=== PATIENT | female | born 1955 | race Caucasian/White ===

== ENCOUNTER 2021-12-11 08:40 | Outpatient (CLI) | payer MEDICARE, SELFPAY ==
--- NOTE | ~2021-12-11 | MM_ITS ---
EXAMINATION: MM screening [facility] BI w aneesh HISTORY: Screening mammogram TECHNIQUE: Craniocaudal and mediolateral oblique 3-D tomosynthesis images were obtained and synthetic 2-D images were generated. CAD analysis was submitted and interpreted. COMPARISON: 08/20/2019 bilateral screening mammogram 4 bilateral diagnostic digital mammogram and limited left breast ultrasound examinations 08/20/2017 left diagnostic mammogram and limited left breast ultrasound 01/14/2017 bilateral screening mammogram BREAST PARENCHYMAL COMPOSITION: The breasts are almost entirely fatty. FINDINGS: Benign stable circumscribed 5.8 mm posterior mid lateral breast intramammary lymph node. There is no evidence of suspicious mass, calcification, or architectural distortion to suggest malign blessing in either breast. There has been no suspicious interval change. IMPRESSION: 1. No mammographic evidence of malignancy. 2. Recommend routine screening mammography in one year. BI-RADS Category 2: Benign finding(s). Reviewed, dictated and finalized at location A. HEALTH CARE PHYSICIAN
== END 2021-12-11 08:41 | disposition home or self-care (01) ==
LOC: ANHIMG 08:42
PROVIDERS: PCP Family Medicine; Visit Provider Family Medicine
DX: Z12.31 Encounter for screening mammogram for malignant neoplasm of breast (principal)
CPT/HCPCS: 77063; 77067

== ENCOUNTER 2023-02-20 11:33 | Outpatient (CLI) | payer MEDICARE, SELFPAY ==
--- NOTE | ~2023-02-20 | MM_ITS ---
EXAMINATION: MM screening [facility] BI w aneesh HISTORY: Screening mammogram TECHNIQUE: Craniocaudal and mediolateral oblique 3-D tomosynthesis images were obtained and synthetic 2-D images were generated. CAD analysis was submitted and interpreted. COMPARISON: 12/11/2021, 08/20/2019, 02/17/2018, 08/20/2017, 01/14/2017 BREAST PARENCHYMAL COMPOSITION: There are scattered areas of fibroglandular density. FINDINGS: Again noted is a stable intramammary lymph node in the upper outer quadrant of the right br east. No suspicious mass, calcification, or architectural distortion are identified in either breast to suggest malignancy. There has been no suspicious interval change. IMPRESSION: 1. No mammographic evidence of malignancy. 2. Recommend routine screening mammography in one year. BI-RADS Category 2: Benign finding(s). Reviewed, dictated and finalized at location A.
== END 2023-02-20 11:34 | disposition home or self-care (01) ==
LOC: ANHIMG 11:36
PROVIDERS: PCP Family Medicine; Visit Provider Emergency Medicine
DX: Z12.31 Encounter for screening mammogram for malignant neoplasm of breast (principal)
CPT/HCPCS: 77063; 77067

== ENCOUNTER 2023-03-15 12:46 | Emergency (ER) | payer MEDICARE, SELFPAY ==
--- NOTE | ~2023-03-15 | CT_ITS ---
Non-contrast Head CT History: Head injury Technique: Axial non-contrast imaging of the brain was performed. Dose reduction technique was used on this scan by utilizing automated exposure control and iterative reconstruction technique. The dose -length product (DLP) was 605.33 mGy-cm. Findings: There is no evidence of intracranial hemorrhage, mass lesion, or acute infarct. Brain par enchyma appears normal. The ventricles and subarachnoid spaces are normal in size. The calvarium ap pears normal. The visualized paranasal sinuses and mastoid air cells are clear. Impression: No significant abnormality seen. Reviewed, dictated and finalized at location . Impression: No significant abnormality seen.
--- NOTE | ~2023-03-15 | CT_ITS ---
CT Facial Bones and Cervical Spine Clinical Indication: Trauma Technique: Contiguous axial scans were obtained through the facial bones and cervical spine followed by coronal and sagittal reconstructions. Dose reduction technique was used on this scan by utilizing automated exposure control and iterative reconstruction technique. The dose-length product (DLP) was 442.50 mGy-cm. Findings: CT facial bones: No fractures are identified. The visualized paranasal sinuses are clear. Intraorbita l soft tissues appear normal. CT cervical spine: No acute fracture identified. There is reversal normal cervical lordosis. 1 mm ant erolisthesis of C2 over C3 present. 5 mm anterolisthesis of C3 over C4 present. 2 mm anterolisthesis of C4 over C5 present. There is severe degenerative disc narrowing throughout the cervical spine, wor st at C5-C6 and C6-C7. There are uncovertebral degenerative changes throughout the cervical spine as well. There is with extensive facet joint arthropathy throughout the cervical spine, right-sided gene rally worse than left. There is right neural foraminal narrowing at C2-C3. There is probable bilatera l neural foraminal narrowing at C3-C4, C4-C5, and C5-C6. No prevertebral soft tissue swelling. Impression: No fracture is seen in the facial bones. No fracture the cervical spine. Multiple listheses in the upper cervical spine, as detailed above. Advanced degenerative spondylosis of the cervical spine, as detailed above. Reviewed, dictated and finalized at [facility]. Impression: No fracture is seen in the facial bones. No fracture the cervical spine. Multiple listheses in the upper cervical spine, as detailed above. Advanced degenerative spondylosis of the cervical spine, as detailed above.
[2023-03-15 12:54] VITALS: BP 172/80; PULSE 64; RESP 18; TEMP 36.8; O2SAT 99
--- NOTE | 2023-03-15 13:12 | PC.NURSE ---
Pt to CT scan via w/c at this time.
--- NOTE | 2023-03-15 14:15 | ED.HEATRA ---
HPI - Head Injury General Chief complaint: Head Injury Stated complaint: fall, head lac Time Seen by Provider: 03/15/23 12:59 Source: patient Mode of arrival: ambulatory Limitations: no limitations History of Present Illness HPI Narrative: Patient is a 68-year-old female who presents to the ED with reports of a fall with head injury/laceration to right eyebrow. Patient reports she was doing laundry last night around 10:30 PM when she tripped over an article clothing and fell forward. She did hit her head. She was wearing glasses at the time and thinks her glasses frame caused a laceration to her right eyebrow. She denied LOC. She denied any prodromal symptoms prior to the fall. Patient was able to control the bleeding last night, but when she cleaned the wound today, she thought it might need stitches. Denies any other injuries from the fall. Denies vision changes, back or neck pain, chest pain, difficulty breathing. Tetanus status up-to-date as of 2 years ago. Patient is not on any anticoagulation. Related Data Home Medications Medication Instructions Recorded Confirmed fexofenadine 180 mg tablet 180 mg PO DAILY 09/09/19 03/12/23 (Lian Allergy) multivitamin 1 tablet PO DAILY 09/09/19 03/12/23 Allergies Allergy/AdvReac Type Severity Reaction Status Date / Time Sulfa (Sulfonamide Allergy Unknown Skin Verified 03/12/23 09:11 Antibiotics) Reaction Review of Systems Review of Systems: CONSTITUTIONAL: Denies fever, chills, or sweats. EYES: See HPI. CARDIOVASCULAR: Denies chest pain. RESPIRATORY: Denies dyspnea. GASTROINTESTINAL: Denies abdominal pain, nausea, vomiting. SKIN: See HPI. MUSCULOSKELETAL: Denies back pain, joint pain, or myalgia. NEUROLOGIC: See HPI. All systems reviewed & are unremarkable except as noted in HPI and below PMFSH Past Medical History Medical History Mammogram normal (~01/14/17) Other hyperlipidemia Pap smear for cervical cancer screening (~12/14/16) Pure hypercholesterolemia, unspecified Surgical History Surgical History H/O shoulder replacement 03-21-2011 History of carpal tunnel release 2011 History of colonoscopy (~12/27/16) History of knee replacement 2020 Dr Vera, 2006, 2005, 2004 Family History Family History Father Family history of cardiovascular disease, Onset Age: 77 Mother Family history of cardiovascular disease, Onset Age: 86 Social History Social History Social History: Caffeine-coffee Smoking status: Former smoker Smoking end date: 10/21/92 Alcohol intake: current Alcohol use details: occasionally Lack of Transportation: No Lack of Food: Never True Current Housing: I Have Housing Concerned About Future Housing: No Difficulty Paying Gas/Electric Bills: No Difficulty Paying for Meds: No Currently Unemployed: No Education: Trade/Vocational Certificate Difficulty w/ Childcare or Family Care: No Exam Narrative: GENERAL: Well appearing, obese with BMI of 32.9, non-toxic, in no acute distress. HEAD: Normocephalic. EYES: PERRLA/EOMI, conjunctiva clear. 1cm linear vertical laceration to outer R eyebrow, no active bleeding. NECK: Supple. No adenopathy, no masses. No midline spinal tenderness. RESPIRATORY: Airway patent, respirations nonlabored. Clear to auscultation bilaterally, no rales, rhonchi, wheezing. CARDIOVASCULAR: Regular rate and rhythm without murmurs, rubs, or gallops. Radial pulses 2+ and equal bilaterally. MUSCULOSKELETAL: Moves all extremities. Strength/ROM intact without gross deformities. SKIN: Warm, dry, normal color. No rashes. NEURO: A&O X3. Speech clear. Cranial nerves II-XII grossly intact. Steady gait. No ataxic movements. No focal deficits.
[2023-03-15 14:30] VITALS: BP 149/94; PULSE 59; RESP 17; O2SAT 97
== END 2023-03-15 14:32 | disposition home or self-care (01) ==
PROVIDERS: Emergency Provider Physician Assistant; PCP Emergency Medicine
DX: S01.111A Laceration without foreign body of right eyelid and periocular area, initial encounter (principal); S09.90XA Unspecified injury of head, initial encounter; E78.00 Pure hypercholesterolemia, unspecified; Z96.619 Presence of unspecified artificial shoulder joint; Z96.659 Presence of unspecified artificial knee joint; Z87.891 Personal history of nicotine dependence; M47.812 Spondylosis without myelopathy or radiculopathy, cervical region; W18.09XA Striking against other object with subsequent fall, initial encounter
CPT/HCPCS: 12013; 70450; 70486; 72125; 99284

== ENCOUNTER 2023-06-27 15:10 | Outpatient (CLI) | payer MEDICARE, SELFPAY ==
--- NOTE | ~2023-06-27 | XR_ITS ---
EXAMINATION: XR hand RT min 3V DATE: 06/27/2023 15:42 INDICATION: Localized swelling, mass and lump, right hand. Right hand pain. TECHNIQUE: 3 views of right hand were obtained. COMPARISON: None. FINDINGS: There is ulnar subluxation of fifth distal phalanx with respect to the middle phalanx. Ther e is radial angulation of second distal phalanx with respect to the middle phalanx. No fracture. Ther e is advanced osteoarthritis in the radiocarpal compartment including bone volume loss of scaphoid, l unate, and triquetrum and large subchondral cysts. There is severe osteoarthritis of triscaphe joint and first carpometacarpal joint. There is mild osteoarthritis of some of the metacarpophalangeal join ts and interphalangeal joints. There is severe osteoarthritis of first interphalangeal joint and seco nd and fifth distal interphalangeal joints and moderate osteoarthritis of first metacarpophalangeal j oint. There are small loose bodies in the wrist. IMPRESSION: 1. Polyarticular osteoarthritis. Reviewed, dictated and finalized at location E.
--- NOTE | ~2023-06-27 | XR_ITS ---
EXAMINATION: XR hand LT min 3V DATE: 06/27/2023 15:42 INDICATION: Localized swelling, mass and lump, left hand. TECHNIQUE: 3 views of left hand were obtained. COMPARISON: None. FINDINGS: There is ulnar subluxation of second distal phalanx with respect to the middle phalanx. The re is radial angulation of third distal phalanx with respect to the middle phalanx. No fracture. Ther e is advanced osteoarthritis of the radiocarpal compartment including bone volume loss of scaphoid an d lunate. There is scapholunate dissociation with articulation of the distal radius with capitate. Th ere are large subchondral cysts in distal radius. There is severe osteoarthritis of triscaphe joint a nd first carpometacarpal joint. There is mild to moderate osteoarthritis of many of the metacarpophal angeal joints and interphalangeal joints. There is severe osteoarthritis of second and third distal i nterphalangeal joints. There is soft tissue swelling about the wrist. IMPRESSION: 1. Polyarticular osteoarthritis. Reviewed, dictated and finalized at location E.
== END 2023-06-27 15:11 | disposition home or self-care (01) ==
PROVIDERS: PCP Emergency Medicine; Visit Provider Plastic Surgery
DX: R22.33 Localized swelling, mass and lump, upper limb, bilateral (principal); M19.041 Primary osteoarthritis, right hand; M19.042 Primary osteoarthritis, left hand
CPT/HCPCS: 73130

== ENCOUNTER → 2023-07-03 12:49 | Outpatient (CLI) | payer MEDICARE, SELFPAY ==
--- NOTE | ~2023-07-03 | US_ITS ---
EXAMINATION: US soft tissue UE LT DATE: 07/03/2023 13:18 INDICATION: Lump at the dorsum of left wrist. TECHNIQUE: Multiple grayscale and Doppler ultrasound images of the left upper extremity were obtained . COMPARISON: Left hand radiographs 06/27/2023 FINDINGS: In the dorsum of left wrist in the patient's area of concern, there are distended tendon sh eaths containing hypoechoic material, consistent with tenosynovitis. IMPRESSION: 1. Extensor tenosynovitis in the dorsum of left wrist in the patient's area of concern. Reviewed, dictated and finalized at location A.
--- NOTE | ~2023-07-03 | US_ITS ---
EXAMINATION: US soft tissue UE RT DATE: 07/03/2023 13:18 INDICATION: Posterior right wrist lump. TECHNIQUE: Multiple grayscale and Doppler ultrasound images of the right upper extremity were obtaine d. COMPARISON: Right hand radiographs 06/27/23 FINDINGS: There is extensor tenosynovitis in the dorsum of right wrist in the patient's area of roshan rn. IMPRESSION: 1. Extensor tenosynovitis in the dorsum of right wrist in the patient's area of concern. Reviewed, dictated and finalized at location A.
== END ==
PROVIDERS: PCP Emergency Medicine; Visit Provider Plastic Surgery
DX: R22.31 Localized swelling, mass and lump, right upper limb (principal); R22.32 Localized swelling, mass and lump, left upper limb
CPT/HCPCS: 76882

== ENCOUNTER 2023-08-16 14:40 | Outpatient (CLI) | payer MEDICARE, SELFPAY ==
--- NOTE | ~2023-08-16 | DEXA_ITS ---
Bone Density Report Name: REINALDO KIDD Age: 68 Sex: Female Ethnicity: White Date of : 1955 Indication: osteopenia; height loss; prior fracture; postmenopausal Referring Provider: ROLAND MEDINA Study: Bone densitometry was performed. Exam Date: August 16, 2023 Accession number: [id number] Bone Density: Region BMD T-score Z-score Classification AP Spine(L1-L4) 0.891 -1.4 0.6 Osteopenia Femoral Neck (Left) 0.602 -2.2 -0.5 Osteopenia Total Hip (Left) 0.744 -1.6 -0.2 Osteopenia Femoral Neck (Right) 0.759 -0.8 0.9 Normal Total Hip (Right) 0.815 -1.0 0.4 Normal Total Hip Mean 0.780 -1.3 0.1 Osteopenia World Health Organization criteria for BMD impression classify patients as: Normal (T-score at or above -1.0), Osteopenia (T-score between -1.0 and -2.5), or Osteoporosis (T-score at or below -2.5). 10-year Fracture Risk(1): Major Osteoporotic Fracture 18% Hip Fracture 3.4% Reported Risk Factors: [place] (), Neck BMD=0.602, BMI=32.9, previous fracture (1) FRAX(R) Version 3.08. Fracture probability calculated for an untreated patient. Fracture probability may be lower if the patient has received treatment. Previous Exams: Region Exam Age BMD T-score BMD Change BMD Change Date g/cm2 vs Baseline vs Previous Total Hip(Left) 08/16/2023 68 0.744 -1.6 -0.055 (-6.9%) -0.055 (-6.9%) 01/05/2016 61 0.799 -1.2 Total Hip(Right) 08/16/2023 68 0.815 -1.0 -0.056 (-6.5%) -0.056 (-6.5%) 01/05/2016 61 0.871 -0.6 *Denotes significance at 95% confidence level, LSC for Total Hip = 0.027 g/cm2 Clinical Information Provided by Patient: Has had a low trauma fracture Patient maximum height was 64.5 Menopause Age: 48 Drinks caffeinated beverages Onset of menses at age 11 Number of children 0 Impression: The patient has low bone mass, based on the Left Femoral Neck T-score. The patient has an estimated ten-year risk of hip fracture of 3.4% and an estimated ten-year risk of major fracture of 18%, based on the WHO FRAX algorithm. The patient has risk factors, including: previous fracture. The BMD for the Total Hip(Left) decreased, changing by -6.9% since the last DXA exam. The BMD for the Total Hip(Right) decreased, changing by -6.5% since the last DXA exam. Discussion: BONE DENSITY IS LOW AT ONE OR MORE SKELETAL SITES. THE PATIENT'S BMD AND CLINICAL RISK FACTORS CONTRIBUTE TO THIS PATIENT'S INCREASED RISK OF FRACTURE. This patient's lowest T-score is
== END 2023-08-16 14:41 | disposition home or self-care (01) ==
LOC: ANHIMG 14:41
PROVIDERS: PCP Emergency Medicine; Visit Provider Nurse Practitioner Family
DX: M85.88 Other specified disorders of bone density and structure, other site (principal); M85.852 Other specified disorders of bone density and structure, left thigh; M85.851 Other specified disorders of bone density and structure, right thigh
CPT/HCPCS: 77080

== ENCOUNTER 2023-10-03 07:02 | Day surgery (SDC) | payer MEDICARE, SELFPAY ==
[2023-08-16 08:45] VITALS: BMI 33.0
[2023-09-17 13:41] VITALS: BMI 33.1
[2023-10-03 08:11] VITALS: BP 138/88; PULSE 67; RESP 18; TEMP 37.1; O2SAT 97
[2023-10-03] MEDS: LACTATED RINGERS 1,000 ML 150 ML IV CONT (08:24)
--- NOTE | 2023-10-03 08:38 | WPDANESEPPF ---
Anes - Initial Pre Proc Eval Procedure: Operation Date: 10/03/23 09:30 Proposed Procedures p Diagnostic Colonoscopy - Hari Carpio MD Date/Time: 10/03/23 08:38 Surgeon: Hari Carpio MD Pre Op Diagnosis: Family History of Colonic Polyps Patient Data Age: 68 Gender: F Height: 1.55 m Weight: 76.7 kg Last Vital Signs Temp 37.1 C 10/03/23 08:11 Pulse 67 10/03/23 08:11 Resp 18 10/03/23 08:11 BP 138/88 10/03/23 08:11 Pulse Ox 97 10/03/23 08:11 O2 Del Method Room Air 10/03/23 08:11 Allergies Allergy/AdvReac Type Severity Reaction Status Date / Time Sulfa (Sulfonamide Allergy Unknown Skin Verified 10/03/23 08:06 Antibiotics) Reaction Home Medications Medication Instructions Recorded Confirmed Type fexofenadine 180 mg tablet 180 mg PO DAILY 09/09/19 10/03/23 History (Lian Allergy) multivitamin 1 tablet PO DAILY 09/09/19 10/03/23 History triamcinolone acetonide 0.1 % See Rx Instructions .Route 08/09/22 10/03/23 Rx topical cream .COMPLEX #90 grams citalopram 40 mg tablet See Rx Instructions .Route 06/13/23 10/03/23 Rx .COMPLEX #90 tabs azelastine 137 mcg (0.1 %) nasal 1 spray intranasal Q12H #180 mL 08/14/23 10/03/23 Rx spray aerosol meloxicam 15 mg tablet See Rx Instructions .Route 08/19/23 10/03/23 Rx .COMPLEX #90 tabs omeprazole 20 mg capsule,delayed See Rx Instructions .Route 08/23/23 09/17/23 Rx release .COMPLEX #90 caps oxybutynin chloride 15 mg See Rx Instructions .Route 09/05/23 10/03/23 Rx tablet,extended release 24 hr .COMPLEX #180 tabs diclofenac sodium 1 % topical gel See Rx Instructions topical BID 10/02/23 10/03/23 Rx (Voltaren Arthritis Pain) #100 grams Patient hx anesthesia problems: none Family hx anesthesia problems: none Results Review: All pre-operative results and documents have been reviewed as part of the pre-operative evaluation. [facility] Past Medical History Medical History Mammogram normal (~01/14/17) Other hyperlipidemia Pap smear for cervical cancer screening (~12/14/16) Pure hypercholesterolemia, unspecified Surgical History Surgical History H/O shoulder replacement 03-21-2011 History of carpal tunnel release 2011 History of colonoscopy (~12/27/16) History of knee replacement 2020 Dr Vera, 2006, 2005, 2004 Family History Family History Father Family history of cardiovascular disease, Onset Age: 77 Mother Family history of cardiovascular disease, Onset Age: 86 Social History Social History Social History: Caffeine-coffee Smoking status: Former smoker Smoking end date: 10/21/92 Alcohol intake: current Alcohol use details: occasionally Lack of Transportation: No Lack of Food: Never True Current Housing: I Have Housing Concerned About Future Housing: No Difficulty Paying Gas/Electric Bills: No Difficulty Paying for Meds: No Currently Unemployed: No Education: High School Diploma/GED Difficulty w/ Childcare or Family Care: No Living arrangements: alone Spiritual care concerns: No Anes - Eval Final PreProcedure Day of Procedure 10/03/23 08:38 Patient weight: obese Heart: regular rate and rhythm Lungs: clear to auscultation Airway: Mallampati scale class II Neurological: alert and oriented Last oral intake: >/= 8 hours ASA classification: III Emergent: no Anesthetic plan: proceed Anesthesia type and monitoring: general GIVS and standard monitoring Results Review: All pre-operative results and documents have been reviewed as part of the pre-operative evaluation. Informed Consent: The patient's anesthetic plan and its attendant risks and benefits were discussed with the patient/family/POA. Questions were solicited and answers
--- NOTE | 2023-10-03 08:41 | PM.HPGS ---
History of Present Illness History of Present Illness Consent: Risks, benefits, and alternatives have been discussed and questions answered. Patient agrees to proceed with procedure. Chief complaint: Family History of Colonic Polyps Narrative: Vira Buckley is a 68 year old female Presents for screening colonoscopy. Patient's sister has had colon polyps. Patient reports that her own weight appetite and bowel movements have been normal. Patient denies any abdominal pain. She has had no bleeding. Review of Systems Review of Systems: Review of systems is noncontributory. [facility] Past Medical History Medical History Mammogram normal (~01/14/17) Other hyperlipidemia Pap smear for cervical cancer screening (~12/14/16) Pure hypercholesterolemia, unspecified Surgical History Surgical History H/O shoulder replacement 03-21-2011 History of carpal tunnel release 2011 History of colonoscopy (~12/27/16) History of knee replacement 2019 Dr Vera, 2006, 2005, 2004 Family History Family History Father Family history of cardiovascular disease, Onset Age: 77 Mother Family history of cardiovascular disease, Onset Age: 86 Social History Social History Social History: Caffeine-coffee Smoking status: Former smoker Smoking end date: 10/21/92 Alcohol intake: current Alcohol use details: occasionally Lack of Transportation: No Lack of Food: Never True Current Housing: I Have Housing Concerned About Future Housing: No Difficulty Paying Gas/Electric Bills: No Difficulty Paying for Meds: No Currently Unemployed: No Education: High School Diploma/GED Difficulty w/ Childcare or Family Care: No Living arrangements: alone Spiritual care concerns: No Meds Home Medications and Allergies Home Medications Medication Instructions Recorded Confirmed Type fexofenadine 180 mg tablet 180 mg PO DAILY 09/09/19 10/03/23 History (Lian Allergy) multivitamin 1 tablet PO DAILY 09/09/19 10/03/23 History triamcinolone acetonide 0.1 % See Rx Instructions .Route 08/09/22 10/03/23 Rx topical cream .COMPLEX #90 grams citalopram 40 mg tablet See Rx Instructions .Route 06/13/23 10/03/23 Rx .COMPLEX #90 tabs azelastine 137 mcg (0.1 %) nasal 1 spray intranasal Q12H #180 mL 08/14/23 10/03/23 Rx spray aerosol meloxicam 15 mg tablet See Rx Instructions .Route 08/19/23 10/03/23 Rx .COMPLEX #90 tabs omeprazole 20 mg capsule,delayed See Rx Instructions .Route 08/23/23 09/17/23 Rx release .COMPLEX #90 caps oxybutynin chloride 15 mg See Rx Instructions .Route 09/05/23 10/03/23 Rx tablet,extended release 24 hr .COMPLEX #180 tabs diclofenac sodium 1 % topical gel See Rx Instructions topical BID 10/02/23 10/03/23 Rx (Voltaren Arthritis Pain) #100 grams Allergies Allergy/AdvReac Type Severity Reaction Status Date / Time Sulfa (Sulfonamide Allergy Unknown Skin Verified 10/03/23 08:06 Antibiotics) Reaction Vital Signs Vital Signs - 24 hr 10/03/23 08:11 Temperature 98.7 F Pulse Rate 67 Respiratory Rate 18 Blood Pressure 138/88 Pulse Oximetry 97 Oxygen Delivery Room Air Exam Narrative: Physical exam reveals patient to be alert. Vital signs stable. HEENT exam is unremarkable. Patient is anicteric. Lungs are clear to auscultation and to percussion. Heart is without murmur or extra sounds. Abdomen bowel sounds are present soft nontender with no organomegaly. Digital external rectal exam is normal. Assessment and Plan Assessment and plan (1) Family history of colonic polyps: Code(s): Z83.719 - Family history of colon polyps, unspecified Status: Acute Assessment and Plan: The patient's sister has had
[2023-10-03 10:04] VITALS: BP 94/55; PULSE 62; RESP 16; O2SAT 98
[2023-10-03 10:14] VITALS: BP 108/59; PULSE 65; RESP 18; O2SAT 98
[2023-10-03 10:24] VITALS: BP 115/59; PULSE 67; RESP 20; O2SAT 98
--- NOTE | 2023-10-03 10:32 | WPDANESPN ---
Anes - Prog Note Post-Op Date/Time: 10/03/23 10:32 Cardiovascular status: normal Respiratory status: normal Airway patency: baseline Mental status: baseline Post-Op hydration status: normal Vital Signs: Last Vital Signs Temp 37.1 C 10/03/23 08:11 Pulse 67 10/03/23 10:22 Resp 20 10/03/23 10:22 BP 115/59 L 10/03/23 10:22 Pulse Ox 98 10/03/23 10:22 O2 Del Method Room Air 10/03/23 10:22 Pain Score (VAS): 0/10 I/O: Intake & Output 10/02/23 10/03/23 10/03/23 23:59 07:59 15:59 Intake Total 650 Balance 650 Patient Feedback: Patient satisfied with anesthetic care.
== END 2023-10-03 10:40 | disposition home or self-care (01) ==
PROVIDERS: PCP Emergency Medicine; Visit Provider Internal Medicine Gastroenterology
PROC: 0DJD8ZZ Inspection of Lower Intestinal Tract, Via Natural or Artificial Opening Endoscopic (ICD-10-PCS; CPT 45378; principal; 2023-10-03 09:30)
DX: Z83.718 Family history of other colon polyps (principal); K57.30 Diverticulosis of large intestine without perforation or abscess without bleeding; K64.8 Other hemorrhoids
CPT/HCPCS: 45378

== ENCOUNTER 2023-10-31 06:27 | Day surgery (SDC) | payer MEDICARE, SELFPAY ==
[2023-10-16 09:09] VITALS: BMI 32.1
[2023-10-31 08:22] VITALS: BP 137/99; PULSE 76; RESP 16; TEMP 37.3; O2SAT 99; BMI 33.6
--- NOTE | 2023-10-31 09:01 | WPDANESEPPF ---
Anes - Initial Pre Proc Eval Procedure: Operation Date: 10/31/23 09:45 Proposed Procedures p Left Radial Wrist Ganglion Cyst Excision - Harvey Hankins MD Date/Time: 10/31/23 09:01 Surgeon: Harvey Hankins MD Pre Op Diagnosis: Ganglion Cyst Left Wrist Patient Data Age: 68 Gender: F Height: 1.55 m Weight: 80.7 kg Last Vital Signs Temp 37.3 C 10/31/23 08:22 Pulse 76 10/31/23 08:22 Resp 16 10/31/23 08:22 BP 137/99 H 10/31/23 08:22 Pulse Ox 99 10/31/23 08:22 O2 Del Method Room Air 10/31/23 08:22 Allergies Allergy/AdvReac Type Severity Reaction Status Date / Time Sulfa (Sulfonamide Allergy Unknown Swelling Verified 10/31/23 08:12 Antibiotics) Home Medications Medication Instructions Recorded Confirmed Type fexofenadine 180 mg tablet 180 mg PO DAILY 09/09/19 10/31/23 History (Lian Allergy) multivitamin 1 tablet PO DAILY 09/09/19 10/31/23 History triamcinolone acetonide 0.1 % See Rx Instructions .Route 08/09/22 10/31/23 Rx topical cream .COMPLEX #90 grams citalopram 40 mg tablet See Rx Instructions .Route 06/13/23 10/31/23 Rx .COMPLEX #90 tabs azelastine 137 mcg (0.1 %) nasal 1 spray intranasal Q12H #180 mL 08/14/23 10/31/23 Rx spray aerosol meloxicam 15 mg tablet See Rx Instructions .Route 08/19/23 10/31/23 Rx .COMPLEX #90 tabs omeprazole 20 mg capsule,delayed See Rx Instructions .Route 08/23/23 10/31/23 Rx release .COMPLEX #90 caps oxybutynin chloride 15 mg See Rx Instructions .Route 09/05/23 10/31/23 Rx tablet,extended release 24 hr .COMPLEX #180 tabs diclofenac sodium 1 % topical gel See Rx Instructions topical BID 10/02/23 10/31/23 Rx (Voltaren Arthritis Pain) #100 grams vitamin B complex (B 1 tablet PO DAILY 10/16/23 10/31/23 History Complex-Vitamin B12 tablet) Patient hx anesthesia problems: none Family hx anesthesia problems: none Results Review: All pre-operative results and documents have been reviewed as part of the pre-operative evaluation. [facility] Past Medical History Medical History Mammogram normal (~01/14/17) Other hyperlipidemia Pap smear for cervical cancer screening (~12/14/16) Pure hypercholesterolemia, unspecified Surgical History Surgical History H/O shoulder replacement 03-21-2011 History of carpal tunnel release 2011 History of colonoscopy (~12/27/16) History of knee replacement 2020 Dr Vera, 2006, 2005, 2004 Family History Family History Father Family history of cardiovascular disease, Onset Age: 77 Mother Family history of cardiovascular disease, Onset Age: 86 Social History Social History Social History: Caffeine-coffee Smoking packs per day: 0.5 Smoking cigarettes per day: 10.0 Years smoked: 15 Smoking pack-years: 7.50 Smoking status: Former smoker Tobacco type: cigarettes Second hand tobacco smoke exposure: No Smoking end date: 10/21/89 Alcohol intake: current Drinks per week: 2 Alcohol use details: occasionally Substance use: never Substance use type: does not use Lack of Transportation: No Lack of Food: Never True Current Housing: I Have Housing Concerned About Future Housing: No Difficulty Paying Gas/Electric Bills: No Difficulty Paying for Meds: No Currently Unemployed: No Education: High School Diploma/GED Difficulty w/ Childcare or Family Care: No Living arrangements: alone Spiritual care concerns: No Anes - Eval Final PreProcedure Day of Procedure 10/31/23 09:01 Patient weight: obese Heart: regular rate and rhythm Lungs: clear to auscultation Airway: Mallampati scale class II Neurological: alert and oriented Last oral intake: >/= 8 hours ASA classification: III Emergent: no A
[2023-10-31] MEDS: LACTATED RINGERS 1,000 ML 30 ML IV CONT (09:18)
--- NOTE | 2023-10-31 09:20 | WPDHPUPDATE1 ---
History and Physical Update Update Date/Time: 10/31/23 09:20 Patient seen and examined in pre-operative holding area. No interval change in medical history or symptoms. Patient recalls previous discussion of benefits and alternatives to procedure. Continues to desire to proceed with left radial wrist ganglion cyst excision possible first extensor compartment release. Reviewed procedure, post-op expectations and risks including but not limited to bleeding, infection, injury to tendon/nerve/vessel, recurrence, decreased hand function, stiffness, RSD, no change or worsening of symptoms. I discussed the possible use of assistants and their participation in the case. Patient stated understanding and signed the consent form wishing to proceed.
--- NOTE | 2023-10-31 09:21 | W.PM.PROC2 ---
Procedure Note - Detailed Date of Procedure 10/31/23 Pre-op Diagnosis Ganglion Cyst Left Wrist Post-op Diagnosis Same Procedure Performed left radial wrist ganglion cyst excision Surgeon Harvey Hankins MD Anesthesia MAC Description of Procedure INFORMED CONSENT: The patient was seen and examined and marked in the pre-op area.? The patient signed the consent form. PROCEDURE IN DETAIL:The patient taken back to OR on the stretcher in supine position. Time out performed with anesthesia, surgeon and staff agreeing on patient's name site and surgery to be performed SCDs were placed on the lower extremities and inflated. A tourniquet was placed on {left} upper extremity and antibiotics given IV After anesthesia administered sedation I injected {6}cc 1%lido with epi and 0.5% marcaine plain at the operative site The?{left upper extremity}?was prepped and draped in sterile fashion the??{left upper extremity} was? exsanguinated with Esmarch bandage and tourniquet inflated to 250mmHg I proceeded with making a longitudinal incision over the left radial wrist mass through skin and dermis with a 15 blade scalpel. Littler scissors were used to spread down to the mass through sub tissue. A branch of the dorsal radial sensory nerve was identified and protected throughout the procedure. I proceeded with circumferential dissection around the mass with littlers and scalpel down to the wrist capsule. The mass was comprised of synovial fluid and a whitish granulomatous material. I proceeded with excision of the mass off of the wrist capsule with bipolar cautery. I irrigated with normal saline. I repaired the capsular defect with 3-0 vicryl suture. The skin was closed with 4-0 monocryl for dermis and subcuticular followed by dermabond, 4x4, hugh, spica splint and cher. Complications - none EBL- 0cc Disposition - home in stable conditions [facility] [place] Surgery - Charge Forward: Surgery Billing ([id number])
[2023-10-31] MEDS: ceFAZolin SODIUM 2 GM/20 ML SW SYRINGE IV PUSH (09:39)
[2023-10-31] MEDS: BUPivacaine HCL 0.5% 10 ML AMP 5 ML INFILTRATE (10:12)
[2023-10-31] MEDS: LIDO 1%/EPINEPHRINE 1:100,000 20 ML VIAL 5 ML INFILTRATE (10:12)
[2023-10-31 10:23] VITALS: BP 102/60; PULSE 68; RESP 14; O2SAT 94
[2023-10-31 10:33] VITALS: BP 92/63; PULSE 63; RESP 18; O2SAT 93
[2023-10-31 10:43] VITALS: BP 114/65; PULSE 74; RESP 16; O2SAT 94
--- NOTE | 2023-10-31 10:49 | WPDANESPN ---
Anes - Prog Note Post-Op Date/Time: 10/31/23 10:49 Cardiovascular status: normal Respiratory status: normal Airway patency: baseline Mental status: baseline Post-Op hydration status: normal Vital Signs: Last Vital Signs Temp 37.3 C 10/31/23 08:22 Pulse 74 10/31/23 10:43 Resp 16 10/31/23 10:43 BP 114/65 10/31/23 10:43 Pulse Ox 94 10/31/23 10:43 O2 Del Method Room Air 10/31/23 10:43 Pain Score (VAS): 0/10 I/O: Intake & Output 10/30/23 10/31/23 10/31/23 23:59 07:59 15:59 Intake Total 400 Balance 400 Patient Feedback: Patient satisfied with anesthetic care.
[2023-10-31 10:53] VITALS: BP 132/72; PULSE 62; RESP 16; O2SAT 94
[2023-10-31 11:03] VITALS: BP 119/61; PULSE 67; RESP 16; O2SAT 94
== END 2023-10-31 11:19 | disposition home or self-care (01) ==
PROVIDERS: PCP Emergency Medicine; Visit Provider Plastic Surgery
PROC: (CPT 25111; principal; 2023-10-31 09:45)
DX: M67.432 Ganglion, left wrist (principal)
CPT/HCPCS: 25111

== ENCOUNTER 2023-10-31 07:00 | Outpatient (NON) | payer MEDICARE, SELFPAY | END 2023-10-31 07:01 | disposition home or self-care (01) | LOC: ANHLAB 11-01 08:07 | PROVIDERS: PCP Emergency Medicine; Visit Provider Plastic Surgery | DX: M67.442 Ganglion, left hand (principal) | CPT/HCPCS: 88305 ==

== ENCOUNTER 2024-11-16 11:51 | Outpatient (CLI) | payer MEDICARE, SELFPAY ==
[2024-11-16 12:24] LABS: Alanine Aminotransferase 29 U/L (6-35); Aspartate Amino Transferase 33 U/L (14-36)
--- OUTSIDE RECORDS SUMMARY | 2024-11-16 12:44 | XMS_ITS | Referral Summary ---
Author Organization [facility] Address [address] [address] Care Team Providers Care Radio Station Engineer Name Role Phone Murtaza Vazquez MD Primary Care Provider [phone] Encounters Date Type Department Care Team Description 10/28/2024 10:46 AM OXYGEN EQUIPMENT AIDE - 10/28/2024 11:59 PM [facility] Hospital Encounter [facility] [address] [place] [address] [address] [place] [id number] S/P total right hip arthroplasty Discharge Disposition: Discharge to home or self care 10/28/2024 11:40 AM OXYGEN EQUIPMENT AIDE Office Visit [facility] Orthopaedic Surgery [address] [place] [address] Medical Office Building [address] [place] [phone] Jefe Bauer MD S/P total right hip arthroplasty (Primary Dx); Surgical follow-up care 09/15/2024 8:46 AM OXYGEN EQUIPMENT AIDE - 09/16/2024 12:38 PM OXYGEN EQUIPMENT AIDE Hospital Encounter [facility] [address] [address] Jefe Bauer MD Primary osteoarthritis of right hip (Primary Dx) Discharge Disposition: Discharge to home or self care 09/15/2024 11:25 AM OXYGEN EQUIPMENT AIDE - 09/15/2024 1:30 PM [facility] Surgery [facility] Operating Room [address] [address] Jefe Bauer MD ARTHROPLASTY RIGHT TOTAL HIP - DEPUY 09/15/2024 11:01 AM OXYGEN EQUIPMENT AIDE Anesthesia Event [facility] Operating Room [address] [address] Js Hyatt MD Thomas, Karen D., NP 09/07/2024 Telephone [facility] Orthopaedic Surgery [address] [place] [address] 4 [address] [place] [address] Jefe Bauer MD 09/07/2024 Orders Only [facility] Orthopaedic Surgery [address] [place] [address] 4 [address] [place] [address] Jefe Bauer MD 08/27/2024 1:25 PM OXYGEN EQUIPMENT AIDE Lab [facility] [address] [address] [address] Primary osteoarthritis of right hip; Preoperative testing; Disorder of cartilage, unspecified 08/27/2024 1:00 PM OXYGEN EQUIPMENT AIDE Pre-Admission Testing [facility] Pre-Anesthesia Testing [address] [address] Preoperative testing (Primary Dx) 08/27/2024 2:30 PM OXYGEN EQUIPMENT AIDE Ancillary Procedure [facility] Vascular Lab Vascular Surgery [address] [facility] [address] Pre-operative exam 08/25/2024 Orders Only [facility] Orthopaedic Surgery [address] [place] [address] 4 [address] [place] [address] Jefe Bauer MD from Last 3 Months Allergies Active Allergy Reactions Criticality Noted Date Comments Sulfa (Sulfonamide Antibiotics) Swelling,Rash Medium 1 10/28/2018 Medications omeprazole (PriLOSEC) 20 mg capsuleIndicatio ns:Treatment of Non-Bleeding Gastric Disorder Take 1 capsule (20 mg total) by mouth every morning Active citalopram (CeleXA) 40 mg tabletIndication s:major depressive disorder Take 1 tablet (40 mg total) by mouth every morning Active fexofenadine HCl (ESTELLE ORAL)Indications :allergies Take 180 mg by mouth every morning Active guaifenesin (MUCINEX ORAL)Indications :allergies/ congestion Take 1 Dose by mouth as needed (allergies/ congestion) Active CALCIUM ORALIndications: supplement Take 1 Dose by mouth every morning Active cholecalciferol (VITAMIN D-3) 400 unit capsuleIndicatio ns:supplement Take 2 tablet/capsule (800 Units total) by mouth every morning Active azelastine (ASTELIN) 137 mcg (0.1 %) nasal sprayIndications :Seasonal Allergic Rhinitis Administer 1 spray into each nostril 2 (two) times a day 4 Active magnesium oxide (MAG-OX) 250 mg (150.8 mg elemental) tabletIndication s:hypomagnesemia Take 1 tablet (250 mg total) by mouth every morning Active apixaban (ELIQUIS) 2.5 mg tabletIndication s:VTE Prophylaxis Following Ortho Surgery Take 1 tablet (2.5 mg total) by mouth 2 (two) times a day 60 tablet 4 Active oxyCODONE (ROXICODONE) 5 mg immediate release tabletIndication s:Pain Take 1 tablet (5 mg total) by mouth every 4 (four) hours as needed for pain (Breakthrough Pain) 30 tablet 4 Active traMADoL (ULTRAM) 50 mg tablet Take 1 tablet (50 mg total) by mouth every 8 (eight) hours as needed for pain 42 tablet 4 Active acetaminophen (TYLENOL) 500 mg tablet Take 2 tablets (1,000 mg total) by mouth every 8 (eight) hours 90 tablet 1 4 Active meloxicam (MOBIC) 7.5 mg tablet Take 1 tablet (7.5 mg total) by mouth daily 30 tablet 4 Active senna-docusate (Senna-S) 8.6-50 mg Take 2 tablets by mouth 2 (two) times a day 80 tablet 1 4 Active Active Problems Problem Noted Date Diagnosed Date S/P total right hip arthroplasty 09/15/2024 Left leg DVT 06/14/2020 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 Overview (04/25/2020): Added automatically from request for surgery [id number] Pain in joint involving ankle and foot 0 Postoperative care for cataract 12/24/2019 Disorder of sacrum 12/24/2019 Inflammation of sacroiliac joint 12/24/2019 Knee pain 12/24/2019 Plantar fascial fibromatosis 12/24/2019 Spinal enthesopathy 12/24/2019 History of left hip replacement 12/24/2019 Body mass index (BMI) of 36.0-36.9 in adult 05/2019 Overview (12/24/2019): Last Assessment & Plan: Condition: stable Educated patient on normal BMI range of 18.5 to 24.9 Advised to monitor nutrition to not exceed caloric needs, or as indicated by PCP in order to maintain a healthy weight and BMI. Advised to engage in aerobic physical activity, if indicated to be safe by PCP, to assist with maintaining a healthy weight and BMI. Advised to follow up with PCP to address nutrition as needed to assist with reaching or maintaining a healthy weight and BMI. Follow up in: three months with PCP Gastroesophageal reflux disease without esophagi tis 08/28/2019 Overview (12/24/2019): Last Assessment & Plan: Condition: stable Reviewed use of antacid medication and/or diet modifications of decreasing caffeine, spicy foods, chocolate, and avoiding alcohol, tobacco, NSAIDs, and reducing citrus acids. Follow up in: three months with PCP Major depression in remission 08/28/2019 Overview (12/24/2019): Last Assessment & Plan: Condition: stable. Take medications as ordered by Provider; notify Provider if you cannot take medications as ordered or are having difficulties or side-effects from medications (do not stop medications without notifying Provider). If symptoms worsen or do not improve/stabilize, notify health care provider right away. If thoughts of harming self or others notify health care provider immediately &/or seek urgent/emergent care including calling Suicide Hotline ( ) or 321. Follow up in three months with PCP Morbid (severe) obesity due to excess calories 1 10/28/2018 Overview (12/24/2019): Last Assessment & Plan: Condition: stable Discussed with Reinaldo the need to lose weight to reduce their risk of a stroke, myocardial infarction or . Explained to her their risks for those life changing events increases with their existing comorbidity of hypertension/hyperlipidemia/ diabetes mellitus. Reinaldo urged to begin behavior modification which includes changing eating habits, increasing current levels of exercise and if needed seek the expertise of a farm implement engine mechanic. Educated her on normal BMI range of 18.5 kg/m2 - 24.9 kg/m2 Follow up in: three months with PCP Comorbidity: Osteoarthritis Osteoarthritis 08/28/2019 Overview (12/24/2019): Last Assessment & Plan: Condition: samuel Constantino reports compliance with prescribed medications and denies side effects such as medication related stomach ulcers. Member reports worsening morning stiffness that lasts less than 30 minutes; nocturnal pain, muscle weakness or/and locking of joints. Reinaldo demonstrates full range of motion in the affected joint as well as an altered gait. Reinaldo educated on weight reduction, increasing joint friendly low impact physical activity and maintaining a healthy weight. she was advised to discuss any issues with their PCP and keep all follow up appointments. Follow up in: three months with PCP Urge incontinence of urine 08/28/2019 Overview (12/24/2019): Last Assessment & Plan: Condition: samuel Pt encouraged to take all of her medications as prescribed and to keep all her dr appt. Follow up in: three months with PCP Morbid (severe) obesity due to excess calories 1 10/28/2018 Overview (12/25/2019): Last Assessment & Plan: Condition: samuel Discussed with Reinaldo the need to lose weight to reduce their risk of a stroke, myocardial infarction or . Explained to her their risks for those life changing events increases with their existing comorbidity of hypertension/hyperlipidemia/ diabetes mellitus. Reinaldo urged to begin behavior modification which includes changing eating habits, increasing current levels of exercise and if needed seek the expertise of a farm implement engine mechanic. Educated her on normal BMI range of 18.5 kg/m2 ?- 24.9 kg/m2 Follow up in: three months with PCP Comorbidity: Osteoarthritis History of artificial joint 01/09/2017 Immunizations Name Administration Dates Next Due Influenza, Quadrivalent, Spl it, Pediatric, Preservative Free, Intramuscular 07/23/2018 Influenza, Quadrivalent, Spl it, Preservative Free, Intramuscular 07/12/2019,07/09/2018 ZOSTER Recombinant 06/22/2019,07/09/2018 Social History Tobacco Use Types Packs/Day Years Used Date Smoking Tobacco: Former Cigarettes 0.5 22 1 971 - 1992 Smokeless Tobacco: Never Alcohol Use Standard Drinks/Week Comments Yes 1 (1 standard drink = 0.6 oz pur e alcohol) AUDIT-C Answer Date Recorded Q1: How often do you have a drink containing alc ohol? 2-4 times a month 09/15/2024 Q2: How many drinks containi ng alcohol do you have on a typical day when you are drinking? 1 or 2 09/15/2024 Q3: How often do you have si x or more drinks on one occasion? Never 09/15/2024 Personal Safety Answer Date Recorded Have you ever been in or are you currently in a harmful physical or emotional relationship or is someone making you feel afraid or unsafe? Denies 09/15/2024 Comments No Sex and Gender Information Value Date Recorded Sex Assigned at Not on file Legal Sex Female 7:45 PM OXYGEN EQUIPMENT AIDE Gender Identity Not on file Sexual Orientation Not on file Last Filed Vital Signs Vital Sign Reading Time Taken Comments Blood Pressure 138/70 09/16/2024 7:15 AM OXYGEN EQUIPMENT AIDE Pulse 56 09/16/2024 7:15 AM OXYGEN EQUIPMENT AIDE Temperature 36.8 ??C (98.2 ??F) 09/16/2024 7:15 AM CS T Respiratory Rate 16 09/16/2024 7:15 AM OXYGEN EQUIPMENT AIDE Oxygen Saturation 99% 09/16/2024 7:15 AM OXYGEN EQUIPMENT AIDE Inhaled Oxygen Concentration - - Weight 78.5 kg (173 lb) 09/16/2024 10:10 AM OXYGEN EQUIPMENT AIDE Height 154.9 cm (5' 1 ) 09/16/2024 10:10 AM OXYGEN EQUIPMENT AIDE Body Mass Index 32.69 09/16/2024 10:10 AM OXYGEN EQUIPMENT AIDE Plan of Treatment Not on file Medical Devices Implanted Type Area Vending Machine Mechanic Device Identifier Shelf Expiration Date Model / Serial / Lot Splash.FM [id number] Attune Revision Full Coated Knee 37mm Sleeve Tibial Porocoat Latex Free - S0 - [id number] Implanted:Qty: 1 on 06/16/2020 by Jefe Bauer MD at [facility] Other - see comments Left: Knee [employer] [id number] 09/19/2029 [id number] / 0 / [id number] [employer] [id number] Attune Cement Revision Rotate Platform Knee 5 Baseplate Tibial - S0 - [id number] Implanted:Qty: 1 on 06/16/2020 by Jefe Bauer MD at [facility] Other - see comments Left: Knee [employer] [id number] 01/18/2030 [id number] / 0 / [id number] [employer] [id number] Attune 14mm 60mm Revision Press Fit Knee Stem Femoral Sterile Latex Free - S0 - [id number] Implanted:Qty: 1 on 06/16/2020 by Jefe Bauer MD at [facility] Other - see comments Left: Knee [employer] [id number] 03/20/2030 [id number] / 0 / [id number] [employer] [id number] Revision Cement Constrain Knee Left 5 Component Femoral Attune - [id number] Implanted:Qty: 1 on 06/16/2020 by Jefe Bauer MD at [facility] Left: Knee [employer] [id number] 05/20/2030 [id number] / / [id number] [employer] [id number] Attune 8mm Revision Cement Knee Posterior 5 Augment Femoral Latex Free - [id number] Implanted:Qty: 1 on 06/16/2020 by Jefe Bauer MD at [facility] Left: Knee [employer] [id number] 02/17/2030 [id number] / / [id number] [employer] [id number] Attune 14mm 60mm Revision Press Fit Knee Stem Femoral Sterile Latex Free - [id number] Implanted:Qty: 1 on 06/16/2020 by Jefe Bauer MD at [facility] Left: Knee [employer] [id number] 03/20/2030 [id number] / / [id number] [employer] [id number] Attune 8mm Revision Cement Knee Posterior 5 Augment Femoral Latex Free - [id number] Implanted:Qty: 1 on 06/16/2020 by Jefe Bauer MD at [facility] Left: Knee [employer] [id number] 06/20/2029 [id number] / / [id number] [employer] [id number] Attune 4mm Revision Cement Knee Distal 5 Augment Femoral Sterile Latex Free - [id number] Implanted:Qty: 1 on 06/16/2020 by Jefe Bauer MD at [facility] Left: Knee [employer] [id number] 05/20/2030 [id number] / / [id number] [employer] [id number] Attune 8mm Revision Cement Knee Distal 5 Augment Femoral Sterile Latex Free - [id number] Implanted:Qty: 1 on 06/16/2020 by Jefe Bauer MD at [facility] Left: Knee [employer] [id number] 01/18/2030 [id number] / / [id number] Splash.FM [id number] Attune 45mm Revision Full Coated Knee Sleeve Femoral Porocoat Latex Free - [id number] Implanted:Qty: 1 on 06/16/2020 by Jefe Bauer MD at [facility] Left: Knee [employer] [id number] 09/19/2029 [id number] / / [id number] [employer] [id number] Smartset Medium Viscosity Cement 40gm Bone Gentamicin - [id number] Implanted:Qty: 1 on 06/16/2020 by Jefe Bauer MD at [facility] Left: Knee [employer] [id number] 07/20/2021 [id number] / / [id number] [employer] [id number] Attune H14 Mm Revision Constrain Rotate Platform Knee 5 Insert Tibial Aox Sterile - [id number] Implanted:Qty: 1 on 06/16/2020 by Jefe Bauer MD at [facility] Left: Knee [employer] [id number] 07/20/2023 [id number] / / [id number] [employer] Bi Mentum 47mm Press Fit Femoral Proximal Cup Acetabular [id number] - [id number] Implanted:Qty: 1 on 09/15/2024 at [facility] Right: Hip [employer] 06/20/2028 [id number] / / [id number] [employer] Liner Acetabular Hip Bi Mentum Altrx 47mm Polyethylene Size 28 [id number] - [id number] Implanted:Qty: 1 on 09/15/2024 at [facility] Right: Hip [employer] 03/20/2029 [id number] / / [id number] [employer] Actis L107 Mm Collar Hip 6 High Offset Stem Femoral [id number] - [id number] Implanted:Qty: 1 on 09/15/2024 at [facility] Right: Hip [employer] 01/18/2037 [id number] / [id number] / [id number] [employer] Articul/Geovany 28mm Cementless Hip +1.5mm 12/14 Taper Head Femoral Latex Free [id number] - [id number] Implanted:Qty: 1 on 09/15/2024 at [facility] Right: Hip [employer] 06/20/2029 [id number] / [id number] / [id number] Explanted Type Area Vending Machine Mechanic Device Identifier Shelf Expiration Date Model / Serial / Lot Femoral Component -Stem Explanted:Qty : 1 on 06/16/2020 by Jefe Bauer MD at [facility] Other - see comments Left: Knee [employer] DUP Description:Depuy Sigma Tibial Component Explanted:Qty : 1 on 06/16/2020 by Jefe Bauer MD at [facility] Left: Knee [employer] DUP Description:Depuy Sigma Poly Explanted:Qty : 1 on 06/16/2020 by Jefe Bauer MD at [facility] Left: Knee [employer] DUP Description:Dep[employer] Sigma Patella Component Explanted:Qty : 1 on 06/16/2020 by Jefe Bauer MD at [facility] Left: Knee [employer] DUP Description:Depuy Sigma Procedures Procedure Name Priority Date/Time Associated Diagnosis Comments XR HIP RIGHT W PELVIS 2 OR 3 VIEWS Schedule Routine, Read Routine (OP Routine) 10/28/2024 11:07 AM OXYGEN EQUIPMENT AIDE S/P total right hip arthroplasty EGFR Routine 09/16/2024 4:11 AM OXYGEN EQUIPMENT AIDE CREATININE Routine 09/16/2024 4:11 AM OXYGEN EQUIPMENT AIDE HEPATIC FUNCTION PANEL Routine 09/16/2024 4:11 AM OXYGEN EQUIPMENT AIDE CBC WITHOUT DIFFERENTIAL Routine 09/16/2024 4:11 AM OXYGEN EQUIPMENT AIDE PROTIME-INR Routine 09/16/2024 4:11 AM OXYGEN EQUIPMENT AIDE XR PELVIS ORTHO VIEW ED Urgent/IP Urgent 09/15/2024 12:48 PM OXYGEN EQUIPMENT AIDE ARTHROPLASTY TOTAL HIP - DEPUY 09/15/2024 11:05 AM OXYGEN EQUIPMENT AIDE Primary osteoarthritis of right hip SD AN PROCEDURE PLACEHOLDER Routine 09/15/2024 10:51 AM OXYGEN EQUIPMENT AIDE US VEIN DUPLEX LOWER EXTREMITY BILATERAL COMPLETE Schedule Routine, Read Routine (OP Routine) 08/27/2024 2:52 PM OXYGEN EQUIPMENT AIDE Pre-operative exam EGFR Routine 08/27/2024 2:04 PM OXYGEN EQUIPMENT AIDE Primary osteoarthritis of right hip VITAMIN D 25 HYDROXY Routine 08/27/2024 2:04 PM OXYGEN EQUIPMENT AIDE Primary osteoarthritis of right hip Disorder of cartilage, unspecified CBC WITHOUT DIFFERENTIAL Routine 08/27/2024 2:04 PM OXYGEN EQUIPMENT AIDE Preoperative testing COMPREHENSIVE METABOLIC PANEL Routine 08/27/2024 2:04 PM OXYGEN EQUIPMENT AIDE Primary osteoarthritis of right hip from Last 3 Months Results * XR Hip Right 2 or 3 Views W Pelvis (10/28/2024 11:07 AM OXYGEN EQUIPMENT AIDE) Anatomical Region Laterality Modality Lower Extremities, Hip, Pelvis Right C omputed Radiography 10/28/2024 11:1 8 AM OXYGEN EQUIPMENT AIDE Impressions 10/28/2024 11:18 AM OXYGEN EQUIPMENT AIDE Right total hip arthroplasty in unchanged, near anatomic position. Electronically signed by: Luan Mariee M.D. Narrative 10/28/2024 11:18 AM OXYGEN EQUIPMENT AIDE EXAMINATION: XR HIP RIGHT 2 OR 3 VIEWS W PELVIS HISTORY: Hip arthroplasty follow-up COMPARISON: 09/15/2020 FINDINGS: ?? Again seen is a right total hip arthroplasty in unchanged, near anatomic position. ??Soft tissue gas has resolved. ??No acute fracture. Procedure Note Luan Mariee MD - 10/28/2024 EXAMINATION: XR HIP RIGHT 2 OR 3 VIEWS W PELVIS HISTORY: Hip arthroplasty follow-up COMPARISON: 09/15/2020 FINDINGS: Again seen is a right total hip arthroplasty in unchanged, near anatomic position. Soft tissue gas has resolved. No acute fracture. IMPRESSION: Right total hip arthroplasty in unchanged, near anatomic position. Electronically signed by: Laun Mariee M.D. Jefe Bauer MD IMG XR PROCEDURES Final R esult * eGFR (09/16/2024 4:11 AM OXYGEN EQUIPMENT AIDE) eGFR >90 >=60 mL/min/1. 73 m2 Comment: Interpretive Data Reference Interval Normal ?>/= 90 mL/min/1.73m2 Mildly decreased* ? 60 - 89 mL/min/1.73m2 Mildly to moderately decreased ?45 - 59 mL/min/1.73m2 Moderately to severely decreased ??30 - 44 mL/min/1.73m2 Severely decreased ?15 - 29 mL/min/1.73m2 Kidney Failure ?< 15 ??mL/min/1.73m2 *Relative to young adult level Estimated glomerular filtration rate is determined by the 2020 CKD-EPI equation recommended by the National Kidney Foundation (A Unifying Approach to GFR Estimation: Recommendations of the NKF-ASK Task Force on Reassessing the Inclusion of Race in Diagnosing Kidney Disease, JASN 202). The CKD-EPI equation should not be used for patients with unstable renal function and has not been validated in children and those over 70. Current interpretive data was last reviewed 2021. Blood 09/16/2024 4:11 AM OXYGEN EQUIPMENT AIDE 09/16/2024 4:33 AM OXYGEN EQUIPMENT AIDE Jaden Lucia MD LAB BLOOD ORDERABLES Lorraine l Result Performing Organization Address [facility] Co de Phone Number [facility] [address] [address] [employer] [facility] [employer] [place], [place] [phone] * Protime-INR (09/16/2024 4:11 AM OXYGEN EQUIPMENT AIDE) PT 11.3 9.7 - 13.0 sec INR 1.05 0.90 - 1.20 ALISHA HOPEWCH Comment: Interpretive data Oral anticoagulant therapeutic ranges: Venous thromboembolism prophylaxis or treatment: 2.0-3.0 CARDIOLOGY Standard range: 2.0-3.0 High-intensity range: 2.5-3.5 Refer to indication-specific guidelines for appropriate target ranges for prosthetic heart valve replacement. Current interpretive data was last revised on 2019. Blood 09/16/2024 4:11 AM OXYGEN EQUIPMENT AIDE 09/16/2024 4:33 AM OXYGEN EQUIPMENT AIDE Narrative ALISHA GIBBSCH - 09/16/2024 4:44 AM OXYGEN EQUIPMENT AIDE Baseline prior to apixaban initiation. Jaden Lucia MD LAB BLOOD ORDERABLES Lorraine bridger Result Performing Organization Address [facility] Co de Phone Number [facility] [address] [facility] [employer] [address] [place], [place] [phone] * (ABNORMAL) CBC without differential (09/16/2024 4:11 AM OXYGEN EQUIPMENT AIDE) WBC 9.5 3.8 - 9.9 K/cumm Hgb 12.5 11.9 - 15.5 g/dL [facility] Hct 37.9 35.6 - 45.5 % [facility] Plt 295 150 - 400 K/cumm [facility] MPV 9.2 9.1 - 12.3 fL [facility] RBC 3.99 3.90 - 5.20 M/cumm [facility] MCV 95.0 81.3 - 96.4 fL [facility] MCH 31.3 27.1 - 33.3 pg [facility] MCHC 33.0 32.3 - 35.7 g/dL [facility] RDW CV 14.1 11.1 - 14.9 % [facility] RDW SD 49.4(H) 35.7 - 48.1 fL [facility] NRBC abs 0.00 0.00 - 0.01 K/cumm [facility] Blood 09/16/2024 4:11 AM OXYGEN EQUIPMENT AIDE 09/16/2024 4:33 AM OXYGEN EQUIPMENT AIDE Narrative ALISHA LEAVITT - 09/16/2024 4:36 AM OXYGEN EQUIPMENT AIDE Baseline prior to apixaban initiation. Jaden Lucia MD LAB BLOOD ORDERABLES Lorraine l Result Performing Organization Address [facility] Co de Phone Number [facility] [address] [employer] [place], [place] [phone] * Creatinine (09/16/2024 4:11 AM OXYGEN EQUIPMENT AIDE) Pathologist [facility] Creatinine 0.67 0.60 - 1.10 mg/dL Blood 09/16/2024 4:11 AM OXYGEN EQUIPMENT AIDE 09/16/2024 4:33 AM OXYGEN EQUIPMENT AIDE Narrative ALISHA GIBBS - 09/16/2024 4:56 AM OXYGEN EQUIPMENT AIDE Baseline prior to apixaban initiation. Jaden Lucia MD LAB BLOOD ORDERABLES Lorraine l Result [facility] [address] [facility] [place] [address] * (ABNORMAL) Hepatic function panel (09/16/2024 4:11 AM OXYGEN EQUIPMENT AIDE) Bilirubin, total <0.1 0.1 - 1.2 mg/dL Bilirubin, direct <0.2 0.1 - 0.3 mg/dL [facility] Protein, pl 6.2(L) 6.5 - 8.5 g/dL [facility] Albumin 3.5 3.5 - 5.0 g/dL [facility] Alk phos 116 40 - 130 Units/L [facility] ALT 26 7 - 45 Units/L [facility] AST 29 10 - 45 Units/L [facility] Blood 09/16/2024 4:11 AM OXYGEN EQUIPMENT AIDE 09/16/2024 4:33 AM OXYGEN EQUIPMENT AIDE Narrative [facility] - 09/16/2024 4:56 AM OXYGEN EQUIPMENT AIDE Baseline prior to apixaban initiation. Jaden Lucia MD LAB BLOOD ORDERABLES Lorraine l Result [facility] [address] [facility] [place] [address] * XR Pelvis Ortho View (09/15/2024 12:48 PM OXYGEN EQUIPMENT AIDE) Anatomical Region Laterality Modality Body, Pelvis N/A Computed Radiogr aphy 09/15/2024 12:5 1 PM OXYGEN EQUIPMENT AIDE Impressions 09/15/2024 12:51 PM OXYGEN EQUIPMENT AIDE 1. New right total hip arthroplasty for osteoarthritis. Electronically signed by: Vic Sandhu M.D. Narrative 09/15/2024 12:51 PM OXYGEN EQUIPMENT AIDE EXAMINATION: XR PELVIS ORTHO VIEW HISTORY: Right hip osteoarthritis COMPARISON: 04/09/2024 FINDINGS: AP pelvis excluding the tops of the iliac bones is performed. There is a new right total hip arthroplasty in expected position. There is postoperative soft tissue gas. No fracture is present. Procedure Note Vic Sandhu MD - 09/15/2024 EXAMINATION: XR PELVIS ORTHO VIEW HISTORY: Right hip osteoarthritis COMPARISON: 04/09/2024 FINDINGS: AP pelvis excluding the tops of the iliac bones is performed. There is a new right total hip arthroplasty in expected position. There is postoperative soft tissue gas. No fracture is present. IMPRESSION: 1. New right total hip arthroplasty for osteoarthritis. Electronically signed by: Vic Sandhu M.D. Jaden Lucia MD IMG XR PROCEDURES Final R esult * SD AN PROCEDURE PLACEHOLDER (09/15/2024 10:51 AM OXYGEN EQUIPMENT AIDE) Narrative Js Hyatt MD - 09/15/2024 10:51 AM OXYGEN EQUIPMENT AIDE Js Hyatt MD ? 09/15/2024 10:54 AM Spinal Block Patient location: pre-op holding Reason for block: primary anesthetic Procedure prep: Preprocedure checklist: patient identified, procedure contraindications assessed, site marked, procedure consent, surgical consent, IV checked, risks, benefits and alternatives discussed, monitors and equipment checked and timeout performed Patient position: sitting Procedure performed while patient: sedate with meaningful contact Monitoring: oximetry, blood pressure and ECG Supplemental O2: nasal cannula Prep solution: chlorhexadine/alcohol PPE: sterile gloves, provider hat/mask and sterile drape Skin infiltrated with lidocaine 1%: yes Spinal: Approach: midline Introducer used: yes Location: L2-3 Spinal injection: CSF demonstrated, no aspiration of heme and no paresthesias noted Number of attempts: 1 Spinal Needle: Needle type: Teena Baljinder (Teena Baljinder) Needle gauge: 24 G Needle length: 9 cm Assessment: Sensory deficit - left: full eval pending Sensory deficit - right: T6 Events: patient tolerated procedure well with no complications Js Hyatt MD ANESTHESIA ORDERABLES Lorraine l Result * US Vein Duplex Lower Extremity Bilateral Complete (08/27/2024 2:52 PM OXYGEN EQUIPMENT AIDE) Anatomical Region Laterality Modality Vascular Bilateral Ultrasound 08/27/2024 3:27 PM OXYGEN EQUIPMENT AIDE Narrative 08/28/2024 10:56 AM OXYGEN EQUIPMENT AIDE [facility] - Department of Vascular Surgery, Vascular Laboratory [address] [place] [address] Lower Extremity Venous Ultrasound Report Patient Name: REINALDO BUCKLEY J : 1955 (69y 7m) Study Date: 08/27/2024 3:27:10 PM Gender: F Tech: BAD Location: [facility] Ref Provider: JEFE BAUER ?Quality: Adequate Order Provider: JEFE BAUER PROCEDURES: Vascular Report: Venous Duplex imaging was performed bilaterally in the lower extremities. The common femoral, femoral, popliteal, posterior tibial, peroneal veins were evaluated for patency, spontaneity and phasicity with Doppler, compression and augmentation maneuvers. Great saphenous vein proximal at the junction was evaluated with compression maneuvers. INDICATIONS: Z01.818 Encounter for other preprocedural examination. FINDINGS: Performing Gaming Cashier: Rosalva Stafford RVT. Bilateral: Venous Doppler signals in the bilateral lower extremity are within normal limits for spontaneity and phasicity and respond normally to augmentation maneuvers. No evidence of deep vein thrombus by duplex, proximal to the calf. CONCLUSIONS: 1. There is no evidence of acute deep vein thrombosis in the lower extremities bilaterally. Noninvasive venous studies cannot rule out isolated calf vein obstruction. 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 PREVIOUS STUDIES: No previous studies for comparison. DISCLAIMER: The study images and the final report will be retained in the patient chart by the Vascular Laboratory for the legally required time period. This chart constitutes the legal record of any testing performed. ATTESTATION: I have reviewed and interpreted the pertinent images and measurements of this study. I attest to the conclusions in the final report that is provided above. Electronically Signed By: Luan Caldwell MD [facility] [phone] 2024-08-28 10:55:43 OXYGEN EQUIPMENT AIDE Procedure Note Luan Caldwell MD - 08/28/2024 [facility] - Department of Vascular Surgery,Vascular Laboratory [address] [place] [id number] Lower Extremity Venous Ultrasound Report Patient Name: REINALDO BUCKLEY J : 1955 (69y 7m) Study Date: 08/27/2024 3:27:10 PM Gender: F Tech: BAD Location: [facility] Ref Provider: JEFE BAUER Quality: Adequate Order Provider: JEFE BAUER PROCEDURES: Vascular Report: Venous Duplex imaging was performed bilaterally in the lower extremities.The common femoral, femoral, popliteal, posterior tibial, peroneal veins wereevaluated for patency, spontaneity and phasicity with Doppler, compression and augmentationmaneuvers. Great saphenous vein proximal at the junction was evaluated with compressionmaneuvers. INDICATIONS: Z01.818 Encounter for other preprocedural examination. FINDINGS: Performing Gaming Cashier: Rosalva Stafford RVT. Bilateral: Venous Doppler signals in the bilateral lower extremity are within normallimits for spontaneity and phasicity and respond normally to augmentation maneuvers.No evidence of deep vein thrombus by duplex, proximal to the calf. CONCLUSIONS: 1. There is no evidence of acute deep vein thrombosis in the lowerextremities bilaterally. Noninvasive venous studies cannot rule out isolated calf veinobstruction. 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 PREVIOUS STUDIES: No previous studies for comparison. DISCLAIMER: The study images and the final report will be retained in the patientchart by the Vascular Laboratory for the legally required time period. This chartconstitutes the legal record of any testing performed. ATTESTATION: I have reviewed and interpreted the pertinent images and measurements ofthis study. I attest to the conclusions in the final report that is provided above. Electronically Signed By: Luan Caldwell MD [facility] [phone] 2024-08-28 10:55:43 OXYGEN EQUIPMENT AIDE Jefe Bauer MD [facility] [place] PROCEDURES Final R esult * eGFR (08/27/2024 2:04 PM OXYGEN EQUIPMENT AIDE) [facility] eGFR >90 >=60 mL/min/1. 73 m2 Comment: Interpretive Data Reference Interval Normal ?>/= 90 mL/min/1.73m2 Mildly decreased* ? 60 - 89 mL/min/1.73m2 Mildly to moderately decreased ?45 - 59 mL/min/1.73m2 Moderately to severely decreased ??30 - 44 mL/min/1.73m2 Severely decreased ?15 - 29 mL/min/1.73m2 Kidney Failure ?< 15 ??mL/min/1.73m2 *Relative to young adult level Estimated glomerular filtration rate is determined by the 2020 CKD-EPI equation recommended by the National Kidney Foundation (A Unifying Approach to GFR Estimation: Recommendations of the NKF-ASK Task Force on Reassessing the Inclusion of Race in Diagnosing Kidney Disease, JASN 2020). The CKD-EPI equation should not be used for patients with unstable renal function and has not been validated in children and those over 70. Current interpretive data was last reviewed 2021. Blood 08/27/2024 2:04 PM OXYGEN EQUIPMENT AIDE 08/27/2024 2:55 PM OXYGEN EQUIPMENT AIDE us Jefe Bauer MD LAB BLOOD ORDERABLES Lorraine l Result Performing Organization Address [facility] Phone Number [facility] [address] [employer] [place] [address] * Vitamin D 25 hydroxy (08/27/2024 2:04 PM OXYGEN EQUIPMENT AIDE) Vitamin D 25-OH 66 30 - 80 ng/mL Blood 08/27/2024 2:04 PM OXYGEN EQUIPMENT AIDE 08/27/2024 2:04 PM OXYGEN EQUIPMENT AIDE us Jefe Bauer MD LAB BLOOD ORDERABLES Lorraine l Result Performing Organization Address [facility] Phone Number NITESHNER [facility] [phone] [employer]. [place] [place] [place] [address] * (ABNORMAL) CBC without differential (08/27/2024 2:04 PM OXYGEN EQUIPMENT AIDE) [facility] WBC 7.9 3.8 - 9.9 K/cumm Hgb 14.2 11.9 - 15.5 g/dL [facility] Hct 43.8 35.6 - 45.5 % [facility] Plt 397 150 - 400 K/cumm [facility] MPV 9.6 9.1 - 12.3 fL [facility] RBC 4.61 3.90 - 5.20 M/cumm [facility] MCV 95.0 81.3 - 96.4 fL [facility] MCH 30.8 27.1 - 33.3 pg [facility] MCHC 32.4 32.3 - 35.7 g/dL [facility] RDW CV 14.1 11.1 - 14.9 % [facility] RDW SD 49.3(H) 35.7 - 48.1 fL [facility] NRBC abs 0.00 0.00 - 0.01 K/cumm [facility] Blood 08/27/2024 2:04 PM OXYGEN EQUIPMENT AIDE 08/27/2024 2:04 PM OXYGEN EQUIPMENT AIDE Tiera Robbins NP LAB BLOOD ORDERABLES Final Re sult [facility] [id number] [facility] [place] [address] * Comprehensive metabolic panel (08/27/2024 2:04 PM OXYGEN EQUIPMENT AIDE) [facility] Sodium 135 135 - 145 mmol/L Potassium, pl 4.3 3.3 - 4.9 mmol/L [facility] Chloride 100 97 - 110 mmol/L [facility] CO2 23 22 - 32 mmol/L [facility] Anion gap 12 2 - 15 mmol/L [facility] BUN 20 6 - 25 mg/dL [facility] Creatinine 0.65 0.60 - 1.10 mg/dL [facility] Glucose 77 70 - 199 mg/dL [facility] Comment: Interpretive Data Fasting glucose >/= 126 mg/dl is diagnostic for diabetes. ?? Fasting is defined as no caloric intake for at least 8 hours. Fasting glucose between 100 mg/dl to 125 mg/dl is diagnostic of prediabetes. In a patient with classic symptoms of hyperglycemia or hyperglycemic crisis, a random glucose >/= 200 mg/dl is diagnostic for diabetes. In the absence of unequivocal hyperglycemia, results should be confirmed by repeat testing. The classification and Diagnosis of Diabetes Diabetes Care 202; 46: S19-S40. Current interpretive data was last revised 2022. Calcium 9.8 8.5 - 10.3 mg/dL [facility] Bilirubin, total 0.3 0.1 - 1.2 mg/dL [facility] Protein, pl 7.3 6.5 - 8.5 g/dL [facility] Albumin 4.2 3.5 - 5.0 g/dL [facility] Alk phos 108 40 - 130 Units/L [facility] ALT 19 7 - 45 Units/L [facility] AST 21 10 - 45 Units/L [facility] Blood 08/27/2024 2:04 PM OXYGEN EQUIPMENT AIDE 08/27/2024 2:04 PM OXYGEN EQUIPMENT AIDE Jefe Bauer MD LAB BLOOD ORDERABLES Lorraine sparks Result [facility] [address] [facility]. [place] [address] from Last 3 Months Insurance [facility] H[facility] REF IDPA IDPA MEDICARE SOLUTIONS [facility] MEDICARE SOLUTIONS Advance Directives For more information, please contact: [phone] * Full Code (Latest Code Status on File) Date Activated Date Inactivated Comments 09/15/2024 2:15 PM 09/16/2024 4:38 PM * Full Code Date Activated Date Inactivated Comments 06/16/2020 6:23 PM 06/17/2020 6:05 PM Care Teams Radio Station Engineer Relationship Specialty Start Date End Date Murtaza Vazquez MD [id number] [facility] [place] [address] PCP - General Family Medicine 04/09/24
--- OUTSIDE RECORDS SUMMARY | 2024-11-16 12:44 | XMS_ITS | Clinical Summary ---
Author Organization [facility] Address [address] [address] Care Team Providers Care Viscosity Tester Name Role Phone Murtaza Vazquez MD Primary Care Provider [phone] Allergies Active Allergy Reactions Criticality Noted Date [...] (04/25/2020): Added automatically from request for surgery [id number] Pain in joint involving ankle and foot [...] including calling Suicide Hotline ( ) or 911. Follow up in three months with PCP Morbid (severe) obesity due to excess calories 1 10/28/2018 Overview (12/24/2019): Last Assessment & Plan: Condition: samuel Discussed [...] if needed seek the expertise of a extracorporeal circulation specialist. Educated her on normal BMI range of 18.5 kg/m2 - 24.9 kg/m2 Follow up in: three months with PCP Comorbidity: Osteoarthritis Osteoarthritis 08/28/2019 Overview (12/24/2019): Last Assessment & Plan: Condition: stable Reinaldo reports compliance with prescribed medications and denies [...] (12/24/2019): Last Assessment & Plan: Condition: stable Pt encouraged to take all of her [...] if needed seek the expertise of a extracorporeal circulation specialist. Educated her on normal BMI range of 18.5 kg/m2 ?- 24.9 kg/m2 Follow up in: three months with PCP Comorbidity: Osteoarthritis History of artificial joint 01/09/2017 Encounters Date Type Department Care Team Description 10/28/2024 11:40 AM HEALTH SYSTEMS ANALYST Office Visit [facility] Orthopaedic Surgery [address] [place] [address] Medical Office Building [address] [place] [phone] Jefe Bauer MD S/P total right hip arthroplasty (Primary Dx); Surgical follow-up care 10/28/2024 10:46 AM HEALTH SYSTEMS ANALYST - 10/28/2024 11:59 PM [facility] Hospital Encounter [facility] Radiology [address] [place] [address] [address] [phone] S/P total right hip arthroplasty Discharge Disposition: Discharge to home or self care 09/15/2024 11:25 AM HEALTH SYSTEMS ANALYST - 09/15/2024 1:30 PM [facility] Surgery [facility] Operating Room [address] [address] Jefe Bauer MD ARTHROPLASTY RIGHT TOTAL HIP - DEPUY 09/15/2024 11:01 AM HEALTH SYSTEMS ANALYST Anesthesia Event [facility] Operating Room [address] [address] Js Hyatt MD Thomas, Karen D., MINER 09/15/2024 8:46 AM HEALTH SYSTEMS ANALYST - 09/16/2024 12:38 PM HEALTH SYSTEMS ANALYST Hospital Encounter [facility] [address] [address] Jefe Bauer MD Primary osteoarthritis of right hip (Primary Dx) Discharge Disposition: Discharge to home or self care 09/07/2024 Telephone [facility] Orthopaedic Surgery [address] [place] [address] [address] [place] [address] Jefe Bauer MD 09/07/2024 Orders Only [facility] Orthopaedic Surgery [address] [place] [address] [address] [place] [address] Jefe Bauer MD 08/27/2024 2:30 PM HEALTH SYSTEMS ANALYST Ancillary Procedure [facility] Vascular Lab Vascular Surgery [address] [facility] MOB 3, [address] [address] Pre-operative exam 08/27/2024 1:25 PM HEALTH SYSTEMS ANALYST Lab [facility] [address] [address] Primary osteoarthritis of right hip; Preoperative testing; Disorder of cartilage, unspecified 08/27/2024 1:00 PM HEALTH SYSTEMS ANALYST Pre-Admission Testing [facility] Pre-Anesthesia Testing [address] [address] Preoperative testing (Primary Dx) 08/25/2024 Orders Only [facility] Orthopaedic Surgery [address] [place] [address] 4 [address] [place] [address] Jefe Bauer MD from Last 3 Months Immunizations Name Administration Dates Next Due Influenza, Quadrivalent, Spl it, Pediatric, Preservative Free, Intramuscular 07/23/2018 Influenza, Quadrivalent, Spl it, Preservative Free, Intramuscular 07/12/2019,07/09/2018 ZOSTER Recombinant 06/22/2019,07/09/2018 Surgical History Surgery Date Site/Laterality Comments TOTAL KNEE ARTHROPLASTY Left TOTAL KNEE ARTHROPLASTY 10/21/2005 - 10/20/2006 Right INCISION AND DRAINAGE 10/21/2006 - 10/20/2007 Right SHOULDER ARTHROPLASTY 10/21/2009 - 10/20/2010 Left SHOULDER ARTHROPLASTY 10/21/2010 - 10/20/2011 Right CARPAL TUNNEL RELEASE 10/21/2010 - 10/20/2011 Bilateral JOINT REPLACEMENT FLUORO GUIDED ASPIRATION OR INJECTION LARGE JOINT RIGHT 04/21/2024 Right Medical History Medical History Date Comments Osteoarthritis DVT (deep venous thrombosis) (CMS/HCC) (HCC) GERD (gastroesophageal reflux disease) OAB (overactive bladder) Family History Medical History Relation Name Comments Arthritis Brother 1 Family history of arthritis - (Added by TW Conv) Hypertension Brother 2 Family history of hypertension - (Added by TW Conv) Arthritis Father Family history of arthritis - (Added by TW Conv) Heart disease Father Family history of cardiac disorder - (Added by TW Conv) Hypertension Father Family history of hypertension - (Added by TW Conv) Arthritis Mother Family history of arthritis - (Added by TW Conv) Heart disease Mother Family history of cardiac disorder - (Added by TW Conv) Hypertension Mother Family history of hypertension - (Added by TW Conv) Arthritis Sister 1 Family history of arthritis - (Added by TW Conv) Hypertension Sister 2 Family history of hypertension - (Added by TW Conv) Anesthesia problems Neg Hx Relation Name Status Comments Brother 1 Brother 2 Father Mother Sister 1 Sister 2 Social History Tobacco Use Types Packs/Day Years [...] on file Legal Sex Female 7:45 PM HEALTH SYSTEMS ANALYST Gender Identity Not on file Sexual Orientation Not on file Obstetrics History Last Filed Vital Signs Vital Sign Reading Time Taken Comments Blood Pressure 138/70 09/16/2024 7:15 AM HEALTH SYSTEMS ANALYST Pulse 56 09/16/2024 7:15 AM HEALTH SYSTEMS ANALYST Temperature 36.8 ??C (98.2 ??F) 09/16/2024 7:15 AM CS T Respiratory Rate 16 09/16/2024 7:15 AM HEALTH SYSTEMS ANALYST Oxygen Saturation 99% 09/16/2024 7:15 AM HEALTH SYSTEMS ANALYST Inhaled Oxygen Concentration - - Weight 78.5 kg (173 lb) 09/16/2024 10:10 AM HEALTH SYSTEMS ANALYST Height 154.9 cm (5' 1 ) 09/16/2024 10:10 AM HEALTH SYSTEMS ANALYST Body Mass Index 32.69 09/16/2024 10:10 AM HEALTH SYSTEMS ANALYST Plan of Treatment Health Maintenance Due Date Last Done Comments Breast Cancer Screening-Mammogram 1955 Colon Cancer Screening-Colonoscopy 1955 Depression Screening 1955 Hepatitis C Screening 1955 Osteoporosis Screening-Bone Density Scan 1955 DTaP/Tdap/Td Vaccine (1 - Tdap) 1966 Hepatitis B Screening 1973 Pneumococcal vaccine 65+ (1 of 1 - PCV) 01/04/2020 Well Visit 65+ 01/04/2020 Influenza Vaccine (#1) 2024 9, 07/23/2018, 07/09/2018 Fall Risk Assessment 09/16/2025 09/16/2024 Zoster Vaccine Completed 06/22/2019, 07/09/2018 Medical Devices Implanted Type Area Human Resources Representative Device Identifier Shelf Expiration Date Model / Serial / Lot Citizen.VC [id number] Attune Revision Full Coated Knee 37mm Sleeve Tibial Porocoat Latex Free - S0 - [id number] Implanted:Qty: 1 on 06/16/2020 by Jefe Bauer MD at [facility] Other - see comments Left: Knee [employer] [id number] 09/19/2029 [id number] / 0 / [id number] Citizen.VC [id number] Attune Cement Revision Rotate Platform Knee 5 Baseplate Tibial - S0 - [id number] Implanted:Qty: 1 on 06/16/2020 by Jefe Bauer MD at [facility] Other - see comments Left: Knee [employer] [id number] 01/18/2030 [id number] / 0 / [id number] [employer] [id number] Attune 14mm 60mm Revision Press Fit Knee Stem Femoral Sterile Latex Free - S0 - [id number] Implanted:Qty: 1 on 06/16/2020 by Jefe Bauer MD at [facility] Other - see comments Left: Knee [employer] [id number] 03/20/2030 [id number] / 0 / [id number] [employer] [id number] Revision Cement Constrain Knee Left 5 Component Femoral Attune - [id number] Implanted:Qty: 1 on 06/16/2020 by Jefe Bauer MD at [facility] Left: Knee [employer] [id number] 05/20/2030 [id number] / / [id number] [employer] [id number] Attune 8mm Revision Cement Knee Posterior 5 Augment Femoral Latex Free - [id number] Implanted:Qty: 1 on 06/16/2020 by Jefe Bauer MD at [facility] Left: Knee [employer] [id number] 02/17/2030 [id number] / / [id number] [employer] [id number] Attune 14mm 60mm Revision Press Fit Knee Stem Femoral Sterile Latex Free - [id number] Implanted:Qty: 1 on 06/16/2020 by Jefe Bauer MD at [facility] Left: Knee [employer] [id number] 03/20/2030 [id number] / / [id number] [employer] [id number] Attune 8mm Revision Cement Knee Posterior 5 Augment Femoral Latex Free - [id number] Implanted:Qty: 1 on 06/16/2020 by Jefe Bauer MD at [facility] Left: Knee [employer] [id number] 06/20/2029 [id number] / / [id number] [employer] [id number] Attune 4mm Revision Cement Knee Distal 5 Augment Femoral Sterile Latex Free - [id number] Implanted:Qty: 1 on 06/16/2020 by Jefe Bauer MD at [facility] Left: Knee [employer] [id number] 05/20/2030 [id number] / / [id number] [employer] [id number] Attune 8mm Revision Cement Knee Distal 5 Augment Femoral Sterile Latex Free - [id number] Implanted:Qty: 1 on 06/16/2020 by Jefe Bauer MD at [facility] Left: Knee [employer] [id number] 01/18/2030 [id number] / / [id number] Citizen.VC [id number] Attune 45mm Revision Full Coated Knee Sleeve Femoral Porocoat Latex Free - [id number] Implanted:Qty: 1 on 06/16/2020 by Jefe Bauer MD at [facility] Left: Knee [employer] [id number] 09/19/2029 [id number] / / [id number] [employer] [id number] Smartset Medium Viscosity Cement 40gm Bone Gentamicin - [id number] Implanted:Qty: 1 on 06/16/2020 by Jefe Bauer MD at [facility] Left: Knee [employer] [id number] 07/20/2021 [id number] / / [id number] Citizen.VC [id number] Attune H14 Mm Revision Constrain Rotate Platform Knee 5 Insert Tibial Aox Sterile - [id number] Implanted:Qty: 1 on 06/16/2020 by Jefe Bauer MD at [facility] Left: Knee [employer] [id number] 07/20/2023 [id number] / / [id number] [employer] Bi Mentum 47mm Press Fit Femoral Proximal Cup Acetabular [id number] - [id number] Implanted:Qty: 1 on 09/15/2024 at [facility] Right: Hip [employer] 06/20/2028 [id number] / / [id number] [employer] Liner Acetabular Hip Bi Mentum Altrx 47mm Polyethylene Size 28 [id number] - [id number] Implanted:Qty: 1 on 09/15/2024 at [facility] Right: Hip [employer] 03/20/2029 [id number] / / [id number] [employer] Actis L107 Mm Collar Hip 6 High Offset Stem Femoral [id number] - [id number] Implanted:Qty: 1 on 09/15/2024 at [facility] Right: Hip [employer] 01/18/2037 [id number] / [id number] / [id number] [employer] Articul/Geovany 28mm Cementless Hip +1.5mm 12/14 Taper Head Femoral Latex Free [id number] - [id number] Implanted:Qty: 1 on 09/15/2024 at [facility] Right: Hip [employer] 06/20/2029 [id number] / [id number] / [id number] Explanted Type Area Human Resources Representative Device Identifier Shelf Expiration Date Model / Serial / Lot Femoral Component -Stem Explanted:Qty : 1 on 06/16/2020 by Jefe Bauer MD at [facility] Other - see comments Left: Knee [employer] DUP Description:[employer] Sigma Tibial Component Explanted:Qty : 1 on 06/16/2020 by Jefe Bauer MD at [facility] Left: Knee [employer] DUP Description:[employer] Poly Explanted:Qty : 1 on 06/16/2020 by Jefe Bauer MD at [facility] Left: Knee [employer] DUP Description:[employer] Patella Component Explanted:Qty : 1 on 06/16/2020 by Jefe Bauer MD at [facility] Left: Knee [employer] DUP Description:Depuy Sigma Procedures Procedure Name Priority Date/Time Associated Diagnosis Comments XR HIP RIGHT W PELVIS 2 OR 3 VIEWS Schedule Routine, Read Routine (OP Routine) 10/28/2024 11:07 AM HEALTH SYSTEMS ANALYST S/P total right hip arthroplasty EGFR Routine 09/16/2024 4:11 AM HEALTH SYSTEMS ANALYST CREATININE Routine 09/16/2024 4:11 AM HEALTH SYSTEMS ANALYST HEPATIC FUNCTION PANEL Routine 09/16/2024 4:11 AM HEALTH SYSTEMS ANALYST CBC WITHOUT DIFFERENTIAL Routine 09/16/2024 4:11 AM HEALTH SYSTEMS ANALYST PROTIME-INR Routine 09/16/2024 4:11 AM HEALTH SYSTEMS ANALYST XR PELVIS ORTHO VIEW ED Urgent/IP Urgent 09/15/2024 12:48 PM HEALTH SYSTEMS ANALYST ARTHROPLASTY TOTAL HIP - DEPUY 09/15/2024 11:05 AM HEALTH SYSTEMS ANALYST Primary osteoarthritis of right hip OH AN PROCEDURE PLACEHOLDER Routine 09/15/2024 10:51 AM HEALTH SYSTEMS ANALYST US VEIN DUPLEX LOWER EXTREMITY BILATERAL COMPLETE Schedule Routine, Read Routine (OP Routine) 08/27/2024 2:52 PM HEALTH SYSTEMS ANALYST Pre-operative exam EGFR Routine 08/27/2024 2:04 PM HEALTH SYSTEMS ANALYST Primary osteoarthritis of right hip VITAMIN D 25 HYDROXY Routine 08/27/2024 2:04 PM HEALTH SYSTEMS ANALYST Primary osteoarthritis of right hip Disorder of cartilage, unspecified CBC WITHOUT DIFFERENTIAL Routine 08/27/2024 2:04 PM HEALTH SYSTEMS ANALYST Preoperative testing COMPREHENSIVE METABOLIC PANEL Routine 08/27/2024 2:04 PM HEALTH SYSTEMS ANALYST Primary osteoarthritis of right hip from Last 3 Months Results * XR Hip Right 2 or 3 Views W Pelvis (10/28/2024 11:07 AM HEALTH SYSTEMS ANALYST) Anatomical Region Laterality Modality Lower Extremities, Hip, Pelvis Right C omputed Radiography 10/28/2024 11:1 8 AM HEALTH SYSTEMS ANALYST Impressions 10/28/2024 11:18 AM HEALTH SYSTEMS ANALYST Right total hip arthroplasty in unchanged, near anatomic position. Electronically signed by: Luan Mariee M.D. Narrative 10/28/2024 11:18 AM HEALTH SYSTEMS ANALYST EXAMINATION: XR HIP RIGHT 2 OR 3 [...] position. Electronically signed by: Luan Mariee M.D. Jefe Bauer MD IMG XR PROCEDURES Final R esult * eGFR (09/16/2024 4:11 AM HEALTH SYSTEMS ANALYST) eGFR >90 >=60 mL/min/1. 73 m2 Comment: [...] last reviewed 2021. Blood 09/16/2024 4:11 AM HEALTH SYSTEMS ANALYST 09/16/2024 4:33 AM HEALTH SYSTEMS ANALYST Jaden Lucia MD LAB BLOOD ORDERABLES Lorraine l Result Performing Organization Address [facility] Co de Phone Number [facility] [phone] [employer] [facility] [address] [place] [address] * Protime-INR (09/16/2024 4:11 AM HEALTH SYSTEMS ANALYST) PT 11.3 9.7 - 13.0 sec INR 1.05 0.90 - 1.20 ALISHA LEAVITT Comment: Interpretive data Oral anticoagulant therapeutic ranges: Venous thromboembolism prophylaxis or treatment: 2.0-3.0 CARDIOLOGY Standard range: 2.0-3.0 High-intensity range: 2.5-3.5 Refer to indication-specific guidelines for appropriate target ranges for prosthetic heart valve replacement. Current interpretive data was last revised on 2019. Blood 09/16/2024 4:11 AM HEALTH SYSTEMS ANALYST 09/16/2024 4:33 AM HEALTH SYSTEMS ANALYST Narrative ALISHA LEAVITT - 09/16/2024 4:44 AM HEALTH SYSTEMS ANALYST Baseline prior to apixaban initiation. Jaden Lucia MD LAB BLOOD ORDERABLES Lorraine l Result Performing Organization Address City/[facility] Co de Phone Number [facility] [address] [employer] [facility] [address] [place], [place] [id number] * (ABNORMAL) CBC without differential (09/16/2024 4:11 AM HEALTH SYSTEMS ANALYST) WBC 9.5 3.8 - 9.9 K/cumm Hgb 12.5 11.9 - 15.5 g/dL [facility] LEAVITT Hct 37.9 35.6 - 45.5 % ALISHA HOPEW Plt 295 150 - 400 K/cumm ALISHA HOPEW MPV 9.2 9.1 - 12.3 fL AL[facility]HA [facility]OPE[facility] RBC 3.99 3.90 - 5.20 M/cumm AL[facility]HA [facility]OPE[facility] MCV 95.0 81.3 - 96.4 fL [facility] MCH 31.3 27.1 - 33.3 pg [facility] MCHC 33.0 32.3 - 35.7 g/dL ALISHA HOPEW RDW CV 14.1 11.1 - 14.9 % AL[facility]OPE[facility] RDW SD 49.4(H) 35.7 - 48.1 fL [facility] NRBC abs 0.00 0.00 - 0.01 K/cumm [facility] Blood 09/16/2024 4:11 AM HEALTH SYSTEMS ANALYST 09/16/2024 4:33 AM HEALTH SYSTEMS ANALYST Narrative ALISHA LEAVITT - 09/16/2024 4:36 AM HEALTH SYSTEMS ANALYST Baseline prior to apixaban initiation. Jaden Lucia MD LAB BLOOD ORDERABLES Lorraine l Result Performing Organization Address City/[facility]/ZIP Co de Phone Number [facility] [address] [employer] [address] * Creatinine (09/16/2024 4:11 AM HEALTH SYSTEMS ANALYST) Pathologist [facility] Creatinine 0.67 0.60 - 1.10 mg/dL Blood 09/16/2024 4:11 AM HEALTH SYSTEMS ANALYST 09/16/2024 4:33 AM HEALTH SYSTEMS ANALYST Narrative ALISHA GIBBS - 09/16/2024 4:56 AM HEALTH SYSTEMS ANALYST Baseline prior to apixaban initiation. Jaden Lucia MD LAB BLOOD ORDERABLES Lorraine l Result [facility] [id number] [employer] [facility] [address] [place] [address] * (ABNORMAL) Hepatic function panel (09/16/2024 4:11 AM HEALTH SYSTEMS ANALYST) Bilirubin, total <0.1 0.1 - 1.2 mg/dL Bilirubin, direct <0.2 0.1 - 0.3 mg/dL [facility] Protein, pl 6.2(L) 6.5 - 8.5 g/dL [facility] Albumin 3.5 3.5 - 5.0 g/dL [facility] Alk phos 116 40 - 130 Units/L [facility] ALT 26 7 - 45 Units/L [facility] AST 29 10 - 45 Units/L [facility] Blood 09/16/2024 4:11 AM HEALTH SYSTEMS ANALYST 09/16/2024 4:33 AM HEALTH SYSTEMS ANALYST Narrative [facility] - 09/16/2024 4:56 AM HEALTH SYSTEMS ANALYST Baseline prior to apixaban initiation. Jaden Lucia MD LAB BLOOD ORDERABLES Lorraine l Result [facility] [id number] [facility]. Department [place] [address] * XR Pelvis Ortho View (09/15/2024 12:48 PM HEALTH SYSTEMS ANALYST) Anatomical Region Laterality Modality Body, Pelvis N/A Computed Radiogr aphy 09/15/2024 12:5 1 PM HEALTH SYSTEMS ANALYST Impressions 09/15/2024 12:51 PM HEALTH SYSTEMS ANALYST 1. New right total hip arthroplasty for osteoarthritis. Electronically signed by: Vic Sandhu M.D. Narrative 09/15/2024 12:51 PM HEALTH SYSTEMS ANALYST EXAMINATION: XR PELVIS ORTHO VIEW HISTORY: Right [...] IMG XR PROCEDURES Final R esult * OH AN PROCEDURE PLACEHOLDER (09/15/2024 10:51 AM HEALTH SYSTEMS ANALYST) Narrative Js Hyatt MD - 09/15/2024 10:51 AM HEALTH SYSTEMS ANALYST Js Hyatt MD ? 09/15/2024 10:54 AM [...] Lower Extremity Bilateral Complete (08/27/2024 2:52 PM HEALTH SYSTEMS ANALYST) Anatomical Region Laterality Modality Vascular Bilateral Ultrasound 08/27/2024 3:27 PM HEALTH SYSTEMS ANALYST Narrative 08/28/2024 10:56 AM HEALTH SYSTEMS ANALYST [facility] [employer] [facility] - Department of Vascular Surgery, Vascular Laboratory [address] [place] [address] Lower Extremity Venous Ultrasound Report Patient Name: REINALDO BUCKLEY J : 1955 (69y 7m) Study Date: 08/27/2024 3:27:10 PM Gender: F Tech: BAD Location: [facility] Ref Provider: JEFE BAUER ?Quality: Adequate Order [...] Encounter for other preprocedural examination. FINDINGS: Performing Utility Worker [employer]: Rosalva Stafford RVT. Bilateral: Venous Doppler signals [...] above. Electronically Signed By: Luan Caldwell MD [facility] [phone] 2024-08-28 10:55:43 HEALTH SYSTEMS ANALYST Procedure Note Luan Caldwell MD - 08/28/2024 [facility] - Department of Vascular Surgery,Vascular Laboratory [address] [place] [address] Lower Extremity Venous Ultrasound Report Patient Name: REINALDO BUCKLEY J : 1955 (69y 7m) Study Date: 08/27/2024 3:27:10 PM Gender: F Tech: BAD Location: [facility] Ref Provider: JEFE BAUER Quality: Adequate Order Provider: JEFE BAUER PROCEDURES: Vascular Report: Venous Duplex imaging was performed bilaterally in the lower extremities.The common femoral, femoral, popliteal, posterior tibial, peroneal veins wereevaluated for patency, spontaneity and phasicity with Doppler, compression and augmentationmaneuvers. Great saphenous vein proximal at the junction was evaluated with compressionmaneuvers. INDICATIONS: Z01.818 Encounter for other preprocedural examination. FINDINGS: Performing Utility Worker [employer]: Rosalva Stafford [employer]. Bilateral: Venous Doppler signals [...] above. Electronically Signed By: Luan Caldwell MD [facility] [phone] 2024-08-28 10:55:43 HEALTH SYSTEMS ANALYST Jefe Bauer MD [facility] US PROCEDURES Final R esult * eGFR (08/27/2024 2:04 PM HEALTH SYSTEMS ANALYST) eGFR >90 >=60 mL/min/1. 73 m2 Comment: [...] last reviewed 2021. Blood 08/27/2024 2:04 PM HEALTH SYSTEMS ANALYST 08/27/2024 2:55 PM HEALTH SYSTEMS ANALYST us Jefe Bauer MD LAB BLOOD ORDERABLES Lorraine l Result Performing Organization Address [facility] de Phone Number [facility]ISHA [facility] [address] [facility] [address] [place] [address] * Vitamin D 25 hydroxy (08/27/2024 2:04 PM HEALTH SYSTEMS ANALYST) [facility] Vitamin D 25-OH 66 30 - 80 ng/mL Blood 08/27/2024 2:04 PM HEALTH SYSTEMS ANALYST 08/27/2024 2:04 PM HEALTH SYSTEMS ANALYST us Jefe Bauer MD LAB BLOOD ORDERABLES Lorraine l Result Performing Organization Address [facility] de Phone Number [facility] [address] [facility] [address] [place] [address] * (ABNORMAL) CBC without differential (08/27/2024 2:04 PM HEALTH SYSTEMS ANALYST) [facility] WBC 7.9 3.8 - 9.9 K/cumm Hgb 14.2 11.9 - 15.5 g/dL [facility] Hct 43.8 35.6 - 45.5 % [facility] Plt 397 150 - 400 K/cumm [facility] MPV 9.6 9.1 - 12.3 fL [facility] RBC 4.61 3.90 - 5.20 M/cumm [facility] MCV 95.0 81.3 - 96.4 fL [facility] MCH 30.8 27.1 - 33.3 pg [facility] MCHC 32.4 32.3 - 35.7 g/dL [facility] RDW CV 14.1 11.1 - 14.9 % [facility] RDW SD 49.3(H) 35.7 - 48.1 fL [facility] NRBC abs 0.00 0.00 - 0.01 K/cumm [facility] Blood 08/27/2024 2:04 PM HEALTH SYSTEMS ANALYST 08/27/2024 2:04 PM HEALTH SYSTEMS ANALYST us Tiera Robbins NP LAB BLOOD ORDERABLES Final Re sult [facility] [address] [facility]. Department [place] [address] * Comprehensive metabolic panel (08/27/2024 2:04 PM HEALTH SYSTEMS ANALYST) [facility] Sodium 135 135 - 145 mmol/L Potassium, pl 4.3 3.3 - 4.9 mmol/L [facility] Chloride 100 97 - 110 mmol/L [facility] CO2 23 22 - 32 mmol/L [facility] Anion gap 12 2 - 15 mmol/L [facility] BUN 20 6 - 25 mg/dL [facility] Creatinine 0.65 0.60 - 1.10 mg/dL [facility] Glucose 77 70 - 199 mg/dL [facility] Comment: Interpretive Data Fasting glucose >/= 126 [...] classification and Diagnosis of Diabetes Diabetes Care 2021; 46: S19-S40. Current interpretive data was last [...] Units/L [facility] Blood 08/27/2024 2:04 PM HEALTH SYSTEMS ANALYST 08/27/2024 2:04 PM HEALTH SYSTEMS ANALYST Jefe Bauer MD LAB BLOOD ORDERABLES Lorraine sparks Result [facility]HA [facility] [id number] [facility]. Department [place] [address] from Last 3 Months Insurance [facility] MDCR HMO REF IDPA [employer] MEDICARE SOLUTIONS [facility] MEDICARE SOLUTIONS Advance Directives For more information, please contact: [phone] * Full Code (Latest Code Status on File) Date Activated Date Inactivated Comments 09/15/2024 2:15 PM 09/16/2024 4:38 PM * Full Code Date Activated Date Inactivated Comments 06/16/2020 6:23 PM 06/17/2020 6:05 PM Care Teams Viscosity Tester Relationship Specialty Start Date End Date Murtaza Vazquez MD [address] [place] [address] PCP - General Family Medicine 04/09/24
== END 2024-11-16 11:52 | disposition home or self-care (01) ==
LOC: ANHLAB 11:54
PROVIDERS: PCP Nurse Practitioner Family; Visit Provider Podiatrist Foot & Ankle Surgery
DX: B35.1 Tinea unguium (principal)
CPT/HCPCS: 36415; 84450; 84460

== ENCOUNTER 2025-02-15 10:11 | Outpatient (CLI) | payer MEDICARE, SELFPAY ==
[2025-02-15 10:52] LABS: Alanine Aminotransferase 24 U/L (6-35); Aspartate Amino Transferase 39 U/L (14-36)
--- OUTSIDE RECORDS SUMMARY | 2025-02-15 11:35 | XMS_ITS | Referral Summary ---
Author Organization [facility] Address [address] [address] Care Team Providers Care Department Traffic Freight Router Name Role Phone Murtaza Vazquez MD Primary Care Provider Allergies Active Allergy Reactions Criticality Noted Date Comments Sulfa (Sulfonamide Antibiotics) Swelling,Rash Medium 1 10/28/2018 Medications omeprazole (PriLOSEC) 20 mg capsuleIndicatio ns:Treatment of Non-Bleeding Gastric Disorder Take 1 capsule (20 mg total) by mouth every morning Active citalopram (CeleXA) 40 mg tabletIndication s:major depressive disorder Take 1 tablet (40 mg total) by mouth every morning Active fexofenadine HCl (ESETLLE ORAL)Indications :allergies Take 180 mg by mouth [...] (04/25/2020): Added automatically from request for surgery [id number] Pain in joint involving ankle and foot [...] Assessment & Plan: Condition: samuel Discussed with Vira the need to lose weight to reduce their risk of a stroke, myocardial infarction or . Explained to her their risks for those life changing events increases with their existing comorbidity of hypertension/hyperlipidemia/ diabetes mellitus. Vira urged to begin behavior modification which includes changing eating habits, increasing current levels of exercise and if needed seek the expertise of a hand candy cutter. Educated her on normal BMI range of 18.5 kg/m2 - 24.9 kg/m2 Follow up in: three months with PCP Comorbidity: Osteoarthritis Osteoarthritis 08/28/2019 Overview (12/24/2019): Last Assessment & Plan: Condition: stable Vira reports compliance with prescribed medications and denies side effects such as medication related stomach ulcers. Member reports worsening morning stiffness that lasts less than 30 minutes; nocturnal pain, muscle weakness or/and locking of joints. Vira demonstrates full range of motion in the affected joint as well as an altered gait. Vira educated on weight reduction, increasing joint friendly [...] Assessment & Plan: Condition: samuel Discussed with Vira the need to lose weight to reduce their risk of a stroke, myocardial infarction or . Explained to her their risks for those life changing events increases with their existing comorbidity of hypertension/hyperlipidemia/ diabetes mellitus. Vira urged to begin behavior modification which includes changing eating habits, increasing current levels of exercise and if needed seek the expertise of a hand candy cutter. Educated her on normal BMI range of 18.5 kg/m2 ?- 24.9 kg/m2 Follow up in: three months with PCP Comorbidity: Osteoarthritis History of artificial joint 01/09/2017 Immunizations Immunization Administration Dates Next Due Influenza, Quadrivalent, Spl it, Pediatric, Preservative Free, Intramuscular 07/23/2018 Influenza, Quadrivalent, Spl it, Preservative Free, Intramuscular 07/12/2019,07/09/2018 ZOSTER Recombinant 06/22/2019,07/09/2018 Social History Tobacco Use Types Packs/Day Years Used Date Smoking Tobacco: Former Cigarettes 0.5 22 1 971 - 1993 Smokeless Tobacco: Never Alcohol Use Standard Drinks/Week [...] on file Legal Sex Female 7:45 PM MEAT MANAGER Gender Identity Not on file Sexual Orientation Not on file Last Filed Vital Signs Vital Sign Reading Time Taken Comments Blood Pressure 138/70 09/16/2024 7:15 AM MEAT MANAGER Pulse 56 09/16/2024 7:15 AM MEAT MANAGER Temperature 36.8 C (98.2 F) 09/16/2024 7:15 AM MEAT MANAGER Respiratory Rate 16 09/16/2024 7:15 AM MEAT MANAGER Oxygen Saturation 99% 09/16/2024 7:15 AM MEAT MANAGER Inhaled Oxygen Concentration - - Weight 78.5 kg (173 lb) 09/16/2024 10:10 AM MEAT MANAGER Height 154.9 cm (5' 1 ) 09/16/2024 10:10 AM MEAT MANAGER Body Mass Index 32.69 09/16/2024 10:10 AM MEAT MANAGER Plan of Treatment Not on file Medical Devices Implanted Type Area Marketing Programs Specialist Device Identifier Shelf Expiration Date Model / Serial / Lot [employer] [id number] Attune Revision Full Coated Knee 37mm Sleeve Tibial Porocoat Latex Free - S0 - [id number] Implanted:Qty: 1 on 06/16/2020 by Rigoberto Vera MD at [facility] Other - see comments Left: Knee [employer] [id number] 09/19/2029 [id number] / 0 / [id number] [employer] [id number] Attune Cement Revision Rotate Platform Knee 5 Baseplate Tibial - S0 - [id number] Implanted:Qty: 1 on 06/16/2020 by Rigoberto Vera MD at [facility] Other - see comments Left: Knee [employer] [id number] 01/18/2030 [id number] / 0 / [id number] [employer] [id number] Attune 14mm 60mm Revision Press Fit Knee Stem Femoral Sterile Latex Free - S0 - [id number] Implanted:Qty: 1 on 06/16/2020 by Rigoberto Vera MD at [facility] Other - see comments Left: Knee [employer] [id number] 03/20/2030 [id number] / 0 / [id number] [employer] [id number] Revision Cement Constrain Knee Left 5 Component Femoral Attune - [id number] Implanted:Qty: 1 on 06/16/2020 by Rigoberto Vera MD at [facility] Left: Knee [employer] [id number] 05/20/2030 [id number] / / [id number] [employer] [id number] Attune 8mm Revision Cement Knee Posterior 5 Augment Femoral Latex Free - [id number] Implanted:Qty: 1 on 06/16/2020 by Rigoberto Vera MD at [facility] Left: Knee [employer] [id number] 02/17/2030 [id number] / / [id number] [employer] [id number] Attune 14mm 60mm Revision Press Fit Knee Stem Femoral Sterile Latex Free - [id number] Implanted:Qty: 1 on 06/16/2020 by Rigoberto Vera MD at [facility] Left: Knee [employer] [id number] 03/20/2030 [id number] / / [id number] [employer] [id number] Attune 8mm Revision Cement Knee Posterior 5 Augment Femoral Latex Free - [id number] Implanted:Qty: 1 on 06/16/2020 by Rigoberto Vera MD at [facility] Left: Knee [employer] [id number] 06/20/2029 [id number] / / [id number] [employer] [id number] Attune 4mm Revision Cement Knee Distal 5 Augment Femoral Sterile Latex Free - [id number] Implanted:Qty: 1 on 06/16/2020 by Rigoberto Vera MD at [facility] Left: Knee [employer] [id number] 05/20/2030 [id number] / / [id number] [employer] [id number] Attune 8mm Revision Cement Knee Distal 5 Augment Femoral Sterile Latex Free - [id number] Implanted:Qty: 1 on 06/16/2020 by Rigoberto Vera MD at [facility] Left: Knee [employer] [id number] 01/18/2030 [id number] / / [id number] [employer] [id number] Attune 45mm Revision Full Coated Knee Sleeve Femoral Porocoat Latex Free - [id number] Implanted:Qty: 1 on 06/16/2020 by Rigoberto Vera MD at [facility] Left: Knee [employer] [id number] 09/19/2029 [id number] / / [id number] [employer] [id number] Smartset Medium Viscosity Cement 40gm Bone Gentamicin - [id number] Implanted:Qty: 1 on 06/16/2020 by Rigoberto Vera MD at [facility] Left: Knee [employer] [id number] 07/20/2021 [id number] / / [id number] [employer] [id number] Attune H14 Mm Revision Constrain Rotate Platform Knee 5 Insert Tibial Aox Sterile - [id number] Implanted:Qty: 1 on 06/16/2020 by Rigoberto Vera MD at [facility] Left: Knee [employer] [id number] 07/20/2023 [id number] / / [id number] [employer] Bi Mentum 47mm Press Fit Femoral Proximal Cup Acetabular [id number] - [id number] Implanted:Qty: 1 on 09/15/2024 at [facility] Right: Hip [employer] Inc 06/20/2028 [id number] / / [id number] [employer] Liner Acetabular Hip Bi Mentum Altrx 47mm Polyethylene Size 28 [id number] - [id number] Implanted:Qty: 1 on 09/15/2024 at [facility] Right: Hip [employer] 03/20/2029 [id number] / / [id number] [employer] Actis L107 Mm Collar Hip 6 High Offset Stem Femoral [id number] - [id number] Implanted:Qty: 1 on 09/15/2024 at [facility] Right: Hip [employer] Inc 01/18/2037 [id number] / [id number] / [id number] [employer] Inc Articul/Geovany 28mm Cementless Hip +1.5mm /14 Taper Head Femoral Latex Free [id number] - [id number] Implanted:Qty: 1 on 09/15/2024 at [facility] Right: Hip [employer] Inc 06/20/2029 [id number] / [id number] / [id number] Explanted Type Area Marketing Programs Specialist Device Identifier Shelf Expiration Date Model / Serial / Lot Femoral Component -Stem Explanted:Qty : 1 on 06/16/2020 by Rigoberto Vera MD at [facility] Other - see comments Left: Knee [employer] DUP Description:Depuy Sigma Tibial Component Explanted:Qty : 1 on 06/16/2020 by Rigoberto Vera MD at [facility] Left: Knee [employer] DUP Description:Depuy Sigma Poly Explanted:Qty : 1 on 06/16/2020 by Rigoberto Vera MD at [facility] Left: Knee [employer] DUP Description:Depuy Sigma Patella Component Explanted:Qty : 1 on 06/16/2020 by Rigoberto Vera MD at [facility] Left: Knee [employer] DUP Description:Depuy Sigma Insurance [employer] [facility]IC[facility] Address: [address] [address] [place] [address] IDPA IDPA [facility] MEDICARE ADVANTAGE [facility] MEDICARE ADVANTAGE Advance Directives For more information, please contact: [phone] * Full Code (Latest Code Status on File) Date Activated Date Inactivated Comments 09/15/2024 2:15 PM 09/16/2024 4:38 PM * Full Code Date Activated Date Inactivated Comments 06/16/2020 6:23 PM 06/17/2020 6:05 PM Care Teams Department Traffic Freight Router Relationship Specialty Start Date End Date Murtaza Vazquez MD [address] [facility] [place] [address] PCP - General Family Medicine 04/09/24
--- OUTSIDE RECORDS SUMMARY | 2025-02-15 11:35 | XMS_ITS | Clinical Summary ---
Author Organization [facility] Address [address] [address] Care Team Providers Care Hyperion Essbase Developer Name Role Phone Murtaza Vazquez MD Primary Care Provider [phone] Allergies Active Allergy Reactions Criticality Noted Date [...] (04/25/2020): Added automatically from request for surgery [id number] Pain in joint involving ankle and foot [...] if needed seek the expertise of a manager gift. Educated her on normal BMI range of [...] if needed seek the expertise of a manager gift. Educated her on normal BMI range of [...] Date Comments Osteoarthritis DVT (deep venous thrombosis) (HCC) GERD (gastroesophageal reflux disease) OAB (overactive [...] Smoking Tobacco: Former Cigarettes 0.5 22 1 - 1992 Smokeless Tobacco: Never Alcohol Use [...] on file Legal Sex Female 7:45 PM BALL ENDER Gender Identity Not on file Sexual Orientation Not on file Obstetrics History Last Filed Vital Signs Vital Sign Reading Time Taken Comments Blood Pressure 138/70 09/16/2024 7:15 AM BALL ENDER Pulse 56 09/16/2024 7:15 AM BALL ENDER Temperature 36.8 C (98.2 F) 09/16/2024 7:15 AM BALL ENDER Respiratory Rate 16 09/16/2024 7:15 AM BALL ENDER Oxygen Saturation 99% 09/16/2024 7:15 AM BALL ENDER Inhaled Oxygen Concentration - - Weight 78.5 kg (173 lb) 09/16/2024 10:10 AM BALL ENDER Height 154.9 cm (5' 1 ) 09/16/2024 10:10 AM BALL ENDER Body Mass Index 32.69 09/16/2024 10:10 AM BALL ENDER Plan of Treatment Health Maintenance Due Date Last Done Comments Breast Cancer Screening-Mammogram 1955 Colon Cancer Screening-Colonoscopy 1955 Depression Screening 1955 Hepatitis C Screening 1955 Osteoporosis Screening-Bone Density Scan 1955 DTaP/Tdap/Td Vaccine (1 - Tdap) 1966 Hepatitis B Screening 1973 Pneumococcal vaccine 65+ (1 of 1 - PCV) 2005 Well Visit 65+ 01/04/2020 Influenza Vaccine (Season Ended) 2025 07/12/2019, 07/23/2018, 07/09/2018 Fall Risk Assessment 09/16/2025 09/16/2024 Zoster Vaccine Completed 06/22/2019, 07/09/2018 Medical Devices Implanted Type Area Flexo Press Operator Device Identifier Shelf Expiration Date Model / Serial / Lot [employer] [id number] Attune Revision Full Coated Knee 37mm Sleeve Tibial Porocoat Latex Free - S0 - [id number] Implanted:Qty: 1 on 06/16/2020 by Rigoberto Vera MD at [facility] Other - see comments Left: Knee [employer] Inc [id number] 09/19/2029 [id number] / 0 / [id number] [employer] [id number] Attune Cement Revision Rotate Platform Knee 5 Baseplate Tibial - S0 - [id number] Implanted:Qty: 1 on 06/16/2020 by Rigoberto Vera MD at [facility] Other - see comments Left: Knee [employer] Inc [id number] 01/18/2030 [id number] / 0 / [id number] Depuy Orth[employer]edics [employer] [id number] Attune 14mm 60mm Revision Press Fit Knee Stem Femoral Sterile Latex Free - S0 - [id number] Implanted:Qty: 1 on 06/16/2020 by Rigoberto Vera MD at [facility] Other - see comments Left: Knee [employer] Inc [id number] 03/20/2030 [id number] / 0 / [id number] [employer] [id number] Revision Cement Constrain Knee Left 5 Component Femoral Attune - [id number] Implanted:Qty: 1 on 06/16/2020 by Rigoberto Vera MD at [facility] Left: Knee [employer] Inc [id number] 05/20/2030 [id number] / / [id number] [employer] Inc [id number] Attune 8mm Revision Cement Knee Posterior 5 Augment Femoral Latex Free - [id number] Implanted:Qty: 1 on 06/16/2020 by Rigoberto Vera MD at [facility] Left: Knee [employer] Inc [id number] 02/17/2030 [id number] / / [id number] [employer] [id number] Attune 14mm 60mm Revision Press Fit Knee Stem Femoral Sterile Latex Free - [id number] Implanted:Qty: 1 on 06/16/2020 by Rigoberto Vera MD at [facility] Left: Knee [employer] Inc [id number] 03/20/2030 [id number] / / [id number] [employer] [id number] Attune 8mm Revision Cement Knee Posterior 5 Augment Femoral Latex Free - [id number] Implanted:Qty: 1 on 06/16/2020 by Rigoberto Vera MD at [facility] Left: Knee [employer] Inc [id number] 06/20/2029 [id number] / / [id number] [employer] Inc 197600920 Attune 4mm Revision Cement Knee Distal 5 Augment Femoral Sterile Latex Free - [id number] Implanted:Qty: 1 on 06/16/2020 by Rigoberto Vera MD at [facility] Left: Knee [employer] [id number] 05/20/2030 [id number] / / [id number] [employer] [id number] Attune 8mm Revision Cement Knee Distal 5 Augment Femoral Sterile Latex Free - [id number] Implanted:Qty: 1 on 06/16/2020 by Rigoberto Vera MD at [facility] Left: Knee [employer] [id number] 01/18/2030 [id number] / / [id number] [employer] [id number] Attune 45mm Revision Full Coated Knee Sleeve Femoral Porocoat Latex Free - [id number] Implanted:Qty: 1 on 06/16/2020 by Rigoberto Vera MD at [facility] Left: Knee [employer] Inc [id number] 09/19/2029 [id number] / / [id number] [employer] [id number] Smartset Medium Viscosity Cement 40gm Bone Gentamicin - [id number] Implanted:Qty: 1 on 06/16/2020 by Rigoberto Vera MD at [facility] Left: Knee [employer] [id number] 07/20/2021 [id number] / / [id number] [employer] [id number] Attune H14 Mm Revision Constrain Rotate Platform Knee 5 Insert Tibial Aox Sterile - [id number] Implanted:Qty: 1 on 06/16/2020 by Rigoberto Vera MD at [facility] Left: Knee [employer] Inc [id number] 07/20/2023 [id number] / / [id number] [employer] Bi Mentum 47mm Press Fit Femoral Proximal Cup Acetabular [id number] - [id number] Implanted:Qty: 1 on 09/15/2024 at [facility] Right: Hip [employer] Inc 06/20/2028 [id number] / / [id number] [employer] Inc Liner Acetabular Hip Bi Mentum Altrx 47mm Polyethylene Size 28 [id number] - [id number] Implanted:Qty: 1 on 09/15/2024 at [facility] Right: Hip [employer] Inc 03/20/2029 [id number] / / [id number] [employer] Actis L107 Mm Collar Hip 6 High Offset Stem Femoral [id number] - [id number] Implanted:Qty: 1 on 09/15/2024 at [facility] Right: Hip [employer] Inc 01/18/2037 [id number] / [id number] / [id number] [employer] Articul/Geovany 28mm Cementless Hip +1.5mm 12/14 Taper Head Femoral Latex Free [id number] - [id number] Implanted:Qty: 1 on 09/15/2024 at [facility] Right: Hip [employer] Inc 06/20/2029 [id number] / [id number] / [id number] Explanted Type Area Flexo Press Operator Device Identifier Shelf Expiration Date Model / Serial / Lot Femoral Component -Stem Explanted:Qty : 1 on 06/16/2020 by Rigoberto Vera MD at [facility] Other - see comments Left: Knee [employer] DUP Description:[employer] Tibial Component Explanted:Qty : 1 on 06/16/2020 by Rigoberto Vera MD at [facility] Left: Knee [employer] DUP Description:[employer] Poly Explanted:Qty : 1 on 06/16/2020 by Rigoberto Vera MD at [facility] Left: Knee [employer] DUP Description:[employer] Patella Component Explanted:Qty : 1 on 06/16/2020 by Rigoberto Vera MD at [facility] Left: Knee [employer] DUP Description:Depuy [employer] Insurance [facility]j [facility] UHC MDCR HMO [facility] MEDIC[facility] Address: [address] [address] [place] [address] IDPA IDPA [facility] MEDICARE ADVANTAGE IDPA [facility] MEDICARE ADVANTAGE Advance Directives For more information, please contact: [phone] * Full Code (Latest Code Status on File) Date Activated Date Inactivated Comments 09/15/2024 2:15 PM 09/16/2024 4:38 PM * Full Code Date Activated Date Inactivated Comments 06/16/2020 6:23 PM 06/17/2020 6:05 PM Care Teams Hyperion Essbase Developer Relationship Specialty Start Date End Date Murtaza Vazquez MD [facility] [place] [address] PCP - General Family Medicine 04/09/24
== END 2025-02-15 10:12 | disposition home or self-care (01) ==
LOC: ANHLAB 10:13
PROVIDERS: PCP Nurse Practitioner Family; Visit Provider Podiatrist Foot & Ankle Surgery
DX: B35.1 Tinea unguium (principal)
CPT/HCPCS: 36415; 84450; 84460

== ENCOUNTER 2025-05-17 09:46 | Outpatient (CLI) | payer MEDICARE, SELFPAY ==
--- OUTSIDE RECORDS SUMMARY | 2025-05-17 10:12 | XMS_ITS | Clinical Summary ---
Author Organization [facility] Address [address] [address] Care Team Providers Care Dispersion Mixer Name Role Phone Murtaza Vazquez MD Primary Care Provider [phone] Allergies Active Allergy Reactions Criticality Noted Date [...] a day 80 tablet 1 4 Active amoxicillin 500 mg tablet/capsule TAKE 4 PILL 1 HOUR BEFORE DENTAL APPOINTMENT. 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 Follow up in three months with PCP [...] if needed seek the expertise of a senior engineering specialist. Educated her on normal BMI range [...] Overview (12/25/2019): Last Assessment & Plan: Condition: stable Discussed with Vira the need to lose weight to reduce their risk of a stroke, myocardial infarction or . Explained to her their risks for those life changing events increases with their existing comorbidity of hypertension/hyperlipidemia/ diabetes mellitus. Vira urged to begin behavior modification which includes changing eating habits, increasing current levels of exercise and if needed seek the expertise of a senior engineering specialist. Educated her on normal BMI range of 18.5 kg/m2 ?- 24.9 kg/m2 Follow up in: three months with PCP Comorbidity: Osteoarthritis History of artificial joint 01/09/2017 Encounters Date Type Department Care Team Description 02/22/2025 Orders Only [facility] [address] [place] [address] Medical Office Building [address] [place] [id number] Rigoberto Vera MD from Last 3 Months Immunizations Immunization Administration Dates Next Due Influenza, [...] on file Legal Sex Female 7:45 PM CHILD DEVELOPMENT CONSULTANT Gender Identity Not on file Sexual Orientation Not on file Obstetrics History Last Filed Vital Signs Vital Sign Reading Time Taken Comments Blood Pressure 138/70 09/16/2024 7:15 AM CHILD DEVELOPMENT CONSULTANT Pulse 56 09/16/2024 7:15 AM CHILD DEVELOPMENT CONSULTANT Temperature 36.8 C (98.2 F) 09/16/2024 7:15 AM CHILD DEVELOPMENT CONSULTANT Respiratory Rate 16 09/16/2024 7:15 AM CHILD DEVELOPMENT CONSULTANT Oxygen Saturation 99% 09/16/2024 7:15 AM CHILD DEVELOPMENT CONSULTANT Inhaled Oxygen Concentration - - Weight 78.5 kg (173 lb) 09/16/2024 10:10 AM CHILD DEVELOPMENT CONSULTANT Height 154.9 cm (5' 1) 09/16/2024 10:10 AM CHILD DEVELOPMENT CONSULTANT Body Mass Index 32.69 09/16/2024 10:10 AM CHILD DEVELOPMENT CONSULTANT Plan of Treatment Health Maintenance Due Date Last Done Comments Breast Cancer Screening-Mammogram 1955 Colon Cancer Screening-Colonoscopy 1955 Depression Screening 1955 Hepatitis C Screening 1955 Osteoporosis Screening-Bone Density Scan 1955 DTaP/Tdap/Td Vaccine (1 - Tdap) 1966 Hepatitis B Screening 1973 Pneumococcal vaccine 65+ (1 of 1 - PCV) 2005 Well Visit 65+ 01/04/2020 Influenza Vaccine (#1) 2025 9, 07/23/2018, 07/09/2018 Fall Risk Assessment 09/16/2025 09/16/2024 Zoster Vaccine Completed 06/22/2019, 07/09/2018 Medical Devices Implanted Type Area Event Av Operator Device Identifier Shelf Expiration Date Model / Serial / Lot Timecros [id number] Attune Revision Full Coated Knee 37mm Sleeve Tibial Porocoat Latex Free - S0 - [id number] Implanted:Qty: 1 on 06/16/2020 by Rigoberto Vera MD at [facility] Other - see comments Left: Knee [employer] [id number] 09/19/2029 [id number] / 0 / [id number] Timecros [id number] Attune Cement Revision Rotate Platform Knee 5 Baseplate Tibial - S0 - [id number] Implanted:Qty: 1 on 06/16/2020 by Rigoberto Vera MD at [facility] Other - see comments Left: Knee [employer] [id number] 01/18/2030 [id number] / 0 / [id number] [employer] [id number] Attune 14mm 60mm Revision Press Fit Knee Stem Femoral Sterile Latex Free - S0 - [id number] Implanted:Qty: 1 on 06/16/2020 by Rigoberto Vera MD at [facility] Other - see comments Left: Knee [employer] [id number] 03/20/2030 [id number] / 0 / [id number] [employer] [id number] Revision Cement Constrain Knee Left 5 Component Femoral Attune - [id number] Implanted:Qty: 1 on 06/16/2020 by Rigoberto Vera MD at [facility] Left: Knee [employer] [id number] 05/20/2030 [id number] / / [id number] [employer] [id number] Attune 8mm Revision Cement Knee Posterior 5 Augment Femoral Latex Free - [id number] Implanted:Qty: 1 on 06/16/2020 by Rigoberto Vera MD at [facility] Left: Knee [employer] [id number] 02/17/2030 [id number] / / [id number] [employer] [id number] Attune 14mm 60mm Revision Press Fit Knee Stem Femoral Sterile Latex Free - [id number] Implanted:Qty: 1 on 06/16/2020 by Rigoberto Vera MD at [facility] Left: Knee [employer] [id number] 03/20/2030 [id number] / / [id number] [employer] [id number] Attune 8mm Revision Cement Knee Posterior 5 Augment Femoral Latex Free - [id number] Implanted:Qty: 1 on 06/16/2020 by Rigoberto Vera MD at [facility] Left: Knee [employer] [id number] 06/20/2029 [id number] / / [id number] [employer] [id number] Attune 4mm Revision Cement Knee Distal 5 Augment Femoral Sterile Latex Free - [id number] Implanted:Qty: 1 on 06/16/2020 by Rigoberto Vera MD at [facility] Left: Knee [employer] [id number] 05/20/2030 [id number] / / [id number] [employer] [id number] Attune 8mm Revision Cement Knee Distal 5 Augment Femoral Sterile Latex Free - [id number] Implanted:Qty: 1 on 06/16/2020 by Rigoberto Vera MD at [facility] Left: Knee [employer] [id number] 01/18/2030 [id number] / / [id number] [employer] [id number] Attune 45mm Revision Full Coated Knee Sleeve Femoral Porocoat Latex Free - [id number] Implanted:Qty: 1 on 06/16/2020 by Rigoberto Vera MD at [facility] Left: Knee [employer] [id number] 09/19/2029 [id number] / / [id number] [employer] [id number] Smartset Medium Viscosity Cement 40gm Bone Gentamicin - [id number] Implanted:Qty: 1 on 06/16/2020 by Rigoberto Vera MD at [facility] Left: Knee [employer] [id number] 07/20/2021 [id number] / / [id number] Timecros [id number] Attune H14 Mm Revision Constrain Rotate Platform Knee 5 Insert Tibial Aox Sterile - [id number] Implanted:Qty: 1 on 06/16/2020 by Rigoberto Vera MD at [facility] Left: Knee [employer] [id number] 07/20/2023 [id number] / / [id number] [employer] Bi Mentum 47mm Press Fit Femoral Proximal Cup Acetabular [id number] - [id number] Implanted:Qty: 1 on 09/15/2024 at [facility] Right: Hip [employer] 06/20/2028 [id number] / / [id number] [employer] Liner Acetabular Hip Bi Mentum Altrx 47mm Polyethylene Size 28 [id number] - [id number] Implanted:Qty: 1 on 09/15/2024 at [facility] Right: Hip [employer] 03/20/2029 [id number] / / [id number] [employer] Actis L107 Mm Collar Hip 6 High Offset Stem Femoral [id number] - [id number] Implanted:Qty: 1 on 09/15/2024 at [facility] Right: Hip [employer] 01/18/2037 [id number] / [id number] / [id number] [employer] Articul/Geovany 28mm Cementless Hip +1.5mm 12/14 Taper Head Femoral Latex Free [id number] - [id number] Implanted:Qty: 1 on 09/15/2024 at [facility] Right: Hip [employer] 06/20/2029 [id number] / [id number] / [id number] Explanted Type Area Event Av Operator Device Identifier Shelf Expiration Date Model [...] [employer] DUP Description:Depuy [employer] Insurance [facility] HEALTHCARE [facility] REF [facility] MEDIC[facility] Address[facility] [address] [address] [place] [address] IDPA [facility] MEDICARE ADVANTAGE IDPA [facility] MEDIC[facility] ADVANTAGE Advance Directives For more information, please contact: [phone] * Full Code (Latest Code Status on File) Date Activated Date Inactivated Comments 09/15/2024 2:15 PM 09/16/2024 4:38 PM * Full Code Date Activated Date Inactivated Comments 06/16/2020 6:23 PM 06/17/2020 6:05 PM Care Teams Dispersion Mixer Relationship Specialty Start Date End Date Murtaza Vazquez MD [address] [facility] [facility] [place] [address] PCP - General Family Medicine 04/09/24
--- OUTSIDE RECORDS SUMMARY | 2025-05-17 10:12 | XMS_ITS | Referral Summary ---
Author Organization [facility] Address [address] [place] [address] Care Team Providers Care Solar Installer Technician Name Role Phone Murtaza Vazquez MD Primary Care Provider [phone] Encounters Date Type Department Care Team Description 02/22/2025 Orders Only [facility] Medical Office Building [address] [place] [address] Rigoberto Vera MD from Last 3 Months Allergies Active [...] (04/25/2020): Added automatically from request for surgery [id number] Pain in joint involving ankle and foot [...] including calling Suicide Hotline ( ) or 981. Follow up in three months with PCP [...] if needed seek the expertise of a control clerk repairs. Educated her on normal BMI range of [...] if needed seek the expertise of a control clerk repairs. Educated her on normal BMI range of [...] on file Legal Sex Female 7:45 PM SOW FARM BARN TECHNICIAN Gender Identity Not on file Sexual Orientation Not on file Last Filed Vital Signs Vital Sign Reading Time Taken Comments Blood Pressure 138/70 09/16/2024 7:15 AM SOW FARM BARN TECHNICIAN Pulse 56 09/16/2024 7:15 AM SOW FARM BARN TECHNICIAN Temperature 36.8 C (98.2 F) 09/16/2024 7:15 AM SOW FARM BARN TECHNICIAN Respiratory Rate 16 09/16/2024 7:15 AM SOW FARM BARN TECHNICIAN Oxygen Saturation 99% 09/16/2024 7:15 AM SOW FARM BARN TECHNICIAN Inhaled Oxygen Concentration - - Weight 78.5 kg (173 lb) 09/16/2024 10:10 AM SOW FARM BARN TECHNICIAN Height 154.9 cm (5' 1) 09/16/2024 10:10 AM SOW FARM BARN TECHNICIAN Body Mass Index 32.69 09/16/2024 10:10 AM SOW FARM BARN TECHNICIAN Plan of Treatment Not on file Medical Devices Implanted Type Area Disease Case Manager Device Identifier Shelf Expiration Date Model / Serial / Lot [employer] [id number] Attune Revision Full Coated Knee 37mm Sleeve Tibial Porocoat Latex Free - S0 - [id number] Implanted:Qty: 1 on 06/16/2020 by Rigoberto Vera MD at [facility] Other - see comments Left: Knee [employer] [id number] 09/19/2029 [id number] / 0 / [id number] [employer] [id number] Attune Cement Revision Rotate Platform Knee 5 Baseplate Tibial - S0 - [id number] Implanted:Qty: 1 on 06/16/2020 by Rigoberto Vera MD at [facility] Other - see comments Left: Knee [employer] [id number] 01/18/2030 [id number] / 0 / [id number] [employer] [id number] Attune 14mm 60mm Revision Press Fit Knee Stem Femoral Sterile Latex Free - S0 - [id number] Implanted:Qty: 1 on 06/16/2020 by Rigoberto Vera MD at [facility] Other - see comments Left: Knee [employer] [id number] 03/20/2030 [id number] / 0 / [id number] [employer] [id number] Revision Cement Constrain Knee Left 5 Component Femoral Attune - [id number] Implanted:Qty: 1 on 06/16/2020 by Rigoberto Vera MD at [facility] Left: Knee [employer] [id number] 05/20/2030 [id number] / / [id number] [employer] [id number] Attune 8mm Revision Cement Knee Posterior 5 Augment Femoral Latex Free - [id number] Implanted:Qty: 1 on 06/16/2020 by Rigoberto Vera MD at [facility] Left: Knee [employer] [id number] 02/17/2030 [id number] / / [id number] [employer] [id number] Attune 14mm 60mm Revision Press Fit Knee Stem Femoral Sterile Latex Free - [id number] Implanted:Qty: 1 on 06/16/2020 by Rigoberto Vera MD at [facility] Left: Knee [employer] [id number] 03/20/2030 [id number] / / [id number] [employer] [id number] Attune 8mm Revision Cement Knee Posterior 5 Augment Femoral Latex Free - [id number] Implanted:Qty: 1 on 06/16/2020 by Rigoberto Vera MD at [facility] Left: Knee [employer] [id number] 06/20/2029 [id number] / / [id number] [employer] [id number] Attune 4mm Revision Cement Knee Distal 5 Augment Femoral Sterile Latex Free - [id number] Implanted:Qty: 1 on 06/16/2020 by Rigoberto Vera MD at [facility] Left: Knee [employer] [id number] 05/20/2030 [id number] / / [id number] [employer] [id number] Attune 8mm Revision Cement Knee Distal 5 Augment Femoral Sterile Latex Free - [id number] Implanted:Qty: 1 on 06/16/2020 by Rigoberto Vera MD at [facility] Left: Knee [employer] [id number] 01/18/2030 [id number] / / [id number] [employer] [id number] Attune 45mm Revision Full Coated Knee Sleeve Femoral Porocoat Latex Free - [id number] Implanted:Qty: 1 on 06/16/2020 by Rigoberto Vera MD at [facility] Left: Knee [employer] [id number] 09/19/2029 [id number] / / [id number] [employer] [id number] Smartset Medium Viscosity Cement 40gm Bone Gentamicin - [id number] Implanted:Qty: 1 on 06/16/2020 by Rigoberto Vera MD at [facility] Left: Knee [employer] [id number] 07/20/2021 [id number] / / [id number] [employer] [id number] Attune H14 Mm Revision Constrain Rotate Platform Knee 5 Insert Tibial Aox Sterile - [id number] Implanted:Qty: 1 on 06/16/2020 by Rigoberto Vera MD at [facility] Left: Knee [employer] [id number] 07/20/2023 [id number] / / [id number] [employer] Bi Mentum 47mm Press Fit Femoral Proximal Cup Acetabular [id number] - [id number] Implanted:Qty: 1 on 09/15/2024 at [facility] Right: Hip [employer] 06/20/2028 [id number] / / [id number] [employer] Liner Acetabular Hip Bi Mentum Altrx 47mm Polyethylene Size 28 [id number] - [id number] Implanted:Qty: 1 on 09/15/2024 at [facility] Right: Hip [employer] 03/20/2029 [id number] / / [id number] [employer] Actis L107 Mm Collar Hip 6 High Offset Stem Femoral [id number] - [id number] Implanted:Qty: 1 on 09/15/2024 at [facility] Right: Hip [employer] 01/18/2037 [id number] / [id number] / [id number] [employer] Articul/Geovany 28mm Cementless Hip +1.5mm /14 Taper Head Femoral Latex Free [id number] - [id number] Implanted:Qty: 1 on 09/15/2024 at [facility] Right: Hip [employer] 06/20/2029 [id number] / [id number] / [id number] Explanted Type Area Disease Case Manager Device Identifier Shelf Expiration Date Model / Serial / Lot Femoral Component -Stem Explanted:Qty : 1 on 06/16/2020 by Rigoberto Vera MD at [facility] Other - see comments Left: Knee [employer] DUP Description:[employer] Tibial Component Explanted:Qty : 1 on 06/16/2020 by Rigoberto Vera MD at [facility] Left: Knee [employer] DUP Description:[employer] Poly Explanted:Qty : 1 on 06/16/2020 by Rigoberto Vera MD at [facility] Left: Knee [employer] DUP Description:Depuy [employer] Patella Component Explanted:Qty : 1 on 06/16/2020 by Rigoberto Vera MD at [facility] Left: Knee [employer] DUP Description:Depuy [employer] Insurance ON LICENSE OF [facility] HEALTHC[facility] MEDICARE ADVANTAGE IDPA [facility] MEDICARE ADVANTAGE Advance Directives For more information, please contact: [phone] * Full Code (Latest Code Status on File) Date Activated Date Inactivated Comments 09/15/2024 2:15 PM 09/16/2024 4:38 PM * Full Code Date Activated Date Inactivated Comments 06/16/2020 6:23 PM 06/17/2020 6:05 PM Care Teams Solar Installer Technician Relationship Specialty Start Date End Date Murtaza Vazquez MD [address] [place] [address] PCP - General Family Medicine 04/09/24
[2025-05-17 11:04] LABS: Alanine Aminotransferase 22 U/L (6-35); Aspartate Amino Transferase 33 U/L (14-36)
== END 2025-05-17 09:47 | disposition home or self-care (01) ==
PROVIDERS: PCP Nurse Practitioner Family; Visit Provider Podiatrist Foot & Ankle Surgery
DX: B35.1 Tinea unguium (principal)
CPT/HCPCS: 36415; 84450; 84460

== ENCOUNTER 2025-06-18 07:30 | Outpatient (CLI) | payer MEDICARE, SELFPAY ==
--- NOTE | ~2025-06-18 | MM_ITS ---
EXAMINATION: MM screening sabrina BI w aneesh HISTORY: Screening TECHNIQUE: Craniocaudal and mediolateral oblique 3-D tomosynthesis images were obtained and synthetic 2-D images were generated. CAD analysis was submitted and interpreted. COMPARISON: Comparison to multiple prior studies sequentially, with oldest reviewed study dated , 01/14/2017 BREAST PARENCHYMAL COMPOSITION: There are scattered areas of fibroglandular density. FINDINGS: There is no evidence of suspicious mass, calcification, or architectural distortion to suggest malignancy in either breast. IMPRESSION: 1. No mammographic evidence of malignancy. 2. Recommend routine screening mammography in one year. BI-RADS Category 1: Negative Reviewed, dictated and finalized at location B.
== END 2025-06-18 07:31 | disposition home or self-care (01) ==
LOC: ANHFOHIMG 07:32
PROVIDERS: PCP Nurse Practitioner Family; Visit Provider Nurse Practitioner Family
DX: Z12.31 Encounter for screening mammogram for malignant neoplasm of breast (principal)
CPT/HCPCS: 77063; 77067

== ENCOUNTER 2025-08-16 09:53 | Outpatient (CLI) | payer MEDICARE, SELFPAY ==
[2025-08-16 10:52] LABS: Alanine Aminotransferase 23 U/L (6-35); Aspartate Amino Transferase 36 U/L (14-36)
--- OUTSIDE RECORDS SUMMARY | 2025-08-16 11:03 | XMS_ITS | Clinical Summary ---
Author Organization [facility] Address [address] [address] Care Team Providers Care Pin Drafter Name Role Phone Murtaza Vazquez MD Primary Care Provider [phone] Allergies Active Allergy Reactions Criticality Noted Date [...] (04/25/2020): Added automatically from request for surgery [id number] Pain in joint involving ankle and foot [...] if needed seek the expertise of a seasoner. Educated her on normal BMI range of [...] if needed seek the expertise of a seasoner. Educated her on normal BMI range of 18.5 kg/m2 ?- 24.9 kg/m2 Follow up in: three months with PCP Comorbidity: Osteoarthritis History of artificial joint 01/09/2017 Encounters Date Type Department Care Team Description 06/22/2025 Orders Only [facility] Medicine Orthopaedic Surgery [address] [facility] [address] [place] [id number] Rigoberto Vera MD from Last 3 Months [...] Date Comments Osteoarthritis DVT (deep venous thrombosis) GERD (gastroesophageal reflux disease) OAB (overactive bladder) [...] on file Legal Sex Female 7:45 PM PRINTING ASSISTANT Gender Identity Not on file Sexual Orientation Not on file Obstetrics History Last Filed Vital Signs Vital Sign Reading Time Taken Comments Blood Pressure 138/70 09/16/2024 7:15 AM PRINTING ASSISTANT Pulse 56 09/16/2024 7:15 AM PRINTING ASSISTANT Temperature 36.8 C (98.2 F) 09/16/2024 7:15 AM PRINTING ASSISTANT Respiratory Rate 16 09/16/2024 7:15 AM PRINTING ASSISTANT Oxygen Saturation 99% 09/16/2024 7:15 AM PRINTING ASSISTANT Inhaled Oxygen Concentration - - Weight 78.5 kg (173 lb) 09/16/2024 10:10 AM PRINTING ASSISTANT Height 154.9 cm (5' 1) 09/16/2024 10:10 AM PRINTING ASSISTANT Body Mass Index 32.69 09/16/2024 10:10 AM PRINTING ASSISTANT Plan of Treatment Health Maintenance Due Date [...] 06/22/2019, 07/09/2018 Medical Devices Implanted Type Area Cafe Site Attendant Device Identifier Shelf Expiration Date Model / Serial / Lot [id number] Attune Revision Full Coated Knee 37mm Sleeve Tibial Porocoat Latex Free - S0 - [id number] Implanted:Qty: 1 on 06/16/2020 by Rigoberto Vera MD at [facility] Other - see comments Left: Knee [employer] [id number] 09/19/2029 [id number] / 0 / [id number] JAZIO [id number] Attune Cement Revision Rotate Platform Knee 5 Baseplate Tibial - S0 - [id number] Implanted:Qty: 1 on 06/16/2020 by Rigoberto Vera MD at [facility] Other - see comments Left: Knee [employer] [id number] 01/18/2030 [id number] / 0 / [id number] [employer] [id number] Attune 14mm 60mm Revision Press Fit Knee Stem Femoral Sterile Latex Free - S0 - [id number] Implanted:Qty: 1 on 06/16/2020 by Rigoberto Vera MD at [facility] Other - see comments Left: Knee [employer] [id number] 03/20/2030 [id number] / 0 / [id number] [employer] [id number] Revision Cement Constrain Knee Left 5 Component Femoral Attune - [id number] Implanted:Qty: 1 on 06/16/2020 by Rigoberto Vera MD at [facility] Left: Knee [employer] [id number] 05/20/2030 [id number] / / [id number] [employer] [id number] Attune 8mm Revision Cement Knee Posterior 5 Augment Femoral Latex Free - [id number] Implanted:Qty: 1 on 06/16/2020 by Rigoberto Vera MD at [facility] Left: Knee [employer] [id number] 02/17/2030 [id number] / / [id number] [employer] [id number] Attune 14mm 60mm Revision Press Fit Knee Stem Femoral Sterile Latex Free - [id number] Implanted:Qty: 1 on 06/16/2020 by Rigoberto Vera MD at [facility] Left: Knee [employer] [id number] 03/20/2030 [id number] / / [id number] [employer] [id number] Attune 8mm Revision Cement Knee Posterior 5 Augment Femoral Latex Free - [id number] Implanted:Qty: 1 on 06/16/2020 by Rigoberto Vera MD at [facility] Left: Knee [employer] [id number] 06/20/2029 [id number] / / [id number] [employer] [id number] Attune 4mm Revision Cement Knee Distal 5 Augment Femoral Sterile Latex Free - [id number] Implanted:Qty: 1 on 06/16/2020 by Rigoberto Vera MD at [facility] Left: Knee [employer] [id number] 05/20/2030 [id number] / / [id number] [employer] [id number] Attune 8mm Revision Cement Knee Distal 5 Augment Femoral Sterile Latex Free - [id number] Implanted:Qty: 1 on 06/16/2020 by Rigoberto Vera MD at [facility] Left: Knee [employer] [id number] 01/18/2030 [id number] / / [id number] JAZIO [id number] Attune 45mm Revision Full Coated Knee Sleeve Femoral Porocoat Latex Free - [id number] Implanted:Qty: 1 on 06/16/2020 by Rigoberto Vera MD at [facility] Left: Knee [employer] [id number] 09/19/2029 [id number] / / [id number] [employer] [id number] Smartset Medium Viscosity Cement 40gm Bone Gentamicin - [id number] Implanted:Qty: 1 on 06/16/2020 by Rigoberto Vera MD at [facility] Left: Knee [employer] [id number] 07/20/2021 [id number] / / [id number] JAZIO [id number] Attune H14 Mm Revision Constrain Rotate Platform Knee 5 Insert Tibial Aox Sterile - [id number] Implanted:Qty: 1 on 06/16/2020 by Rigoberto Vera MD at [facility] Left: Knee [employer] [id number] 07/20/2023 [id number] / / [id number] [employer] Bi Mentum 47mm Press Fit Femoral Proximal Cup Acetabular [id number] - [id number] Implanted:Qty: 1 on 09/15/2024 at [facility] Right: Hip [employer] 06/20/2028 [id number] / / [id number] [employer] Liner Acetabular Hip Bi Mentum Altrx 47mm Polyethylene Size 28 [id number] - [id number] Implanted:Qty: 1 on 09/15/2024 at [facility] Right: Hip [employer] 03/20/2029 [id number] / / [id number] [employer] Actis L107 Mm Collar Hip 6 High Offset Stem Femoral [id number] - [id number] Implanted:Qty: 1 on 09/15/2024 at [facility] Right: Hip [employer] 01/18/2037 [id number] / [id number] / [id number] [employer] Articul/Geovany 28mm Cementless Hip +1.5mm 12/14 Taper Head Femoral Latex Free [id number] - [id number] Implanted:Qty: 1 on 09/15/2024 at [facility] Right: Hip [employer] 06/20/2029 [id number] / [id number] / [id number] Explanted Type Area Cafe Site Attendant Device Identifier Shelf Expiration Date Model / [...] [employer] DUP Description:[employer] Insurance [facility] MDCR HMO REF IDPA [facility] MEDICARE ADVANTAGE IDPA [facility] MEDICARE ADVANTAGE Advance Directives For more information, please contact: [phone] * Full Code (Latest Code Status on File) Date Activated Date Inactivated Comments 09/15/2024 2:15 PM 09/16/2024 4:38 PM * Full Code Date Activated Date Inactivated Comments 06/16/2020 6:23 PM 06/17/2020 6:05 PM Care Teams Pin Drafter Relationship Specialty [place] [address] [place] [address] [place] [address] PCP - General Family Medicine 04/09/24
== END 2025-08-16 09:54 | disposition home or self-care (01) ==
LOC: ANHLAB 09:56
PROVIDERS: PCP Nurse Practitioner Family; Visit Provider Podiatrist Foot & Ankle Surgery
DX: B35.1 Tinea unguium (principal)
CPT/HCPCS: 36415; 84450; 84460